=== PATIENT | female | born 1955 | race Caucasian/White ===

== ENCOUNTER 2024-04-03 13:28 | Outpatient (REF) | payer MEDICARE, SELFPAY ==
[2024-04-03 19:55] LABS: Abs Immature Grans 0.11 10^3/uL (0.0-0.06); Absolute Basophil Count 0.13 10^3/uL (0.0-0.2); Absolute Lymphocyte Count 2.25 10^3/uL (1.2-3.4); Basophils % 0.9 %; Eosinophils % 0.7 %; HCT 37.8 % (36.0-46.0); HGB 12.4 g/dL (11.2-15.7); Immature Grans % 0.8 %; Lymphocytes % 15.8 %; MCH 27.7 pg (27.0-33.0); MCHC 32.8 % (32.0-36.0); MCV 84 fL (80-95); MPV 8.3 fL (8.0-11.0); Monocytes % 8.4 %; Neutrophils % 73.4 %; RBC 4.48 10^6/uL (3.93-5.22); RDW 15.5 % (11.7-14.6); RDW-SD 47.6 fL; WBC 14.25 10^3/uL (4.4-10.8)
[2024-04-03 20:00] LABS: Absolute Neutrophil Count 10.46 10^3/uL (1.2-6.7)
[2024-04-03 20:16] LABS: ALT 20 U/L (14-59); AST 22 U/L (15-37); Albumin 2.2 g/dL (3.4-5.0); Alkaline Phosphatase 122 U/L (46-116); Anion Gap 5.5 mmol/L (3-11); BUN 19 mg/dL (7-18); Bilirubin, Total 0.2 mg/dL (0.2-1.0); CO2 25.5 mmol/L (21.0-32.0); CREATININE 0.5 mg/dL (0.55-1.02); Calcium 8.6 mg/dL (8.5-10.1); Chloride 105 mmol/L (98-107); Estimated GFR 103.38 (mL/min/1.73m2); Glucose 84 mg/dL (74-106); Potassium 3.9 mmol/L (3.5-5.1); Sodium 136 mmol/L (136-145); TSH (W/Ref FT4) 2.51 uIU/mL (0.36-3.74); Total Protein 6.3 g/dL (6.4-8.2)
[2024-04-03 20:46] LABS: Platelet Count 708 10^3/uL (130-400)
[2024-04-06 16:13] LABS: Tissue Transglutaminase Ab IgA <1.2 U/mL (<4.0); Tissue Transglutaminase Ab IgG 1.7 U/mL
== END 2024-04-03 13:29 | disposition home or self-care (01) ==
LOC: NCHCN 13:28
PROVIDERS: Visit Provider Nurse Practitioner Family
DX: K52.9 Noninfective gastroenteritis and colitis, unspecified (principal)
CPT/HCPCS: 80053; 83516; 84443; 85025

== ENCOUNTER 2024-04-04 10:44 | Outpatient (REF) | payer MEDICARE, SELFPAY ==
[2024-04-04 20:05] LABS: C Diff PCR Negative (Negative)
[2024-04-05 23:41] LABS: Campylobacter PCR Negative (Negative); Salmonella PCR Negative (Negative); Shiga Toxin PCR Negative (Negative); Shigella/Enteroinvasive Ecoli Negative (Negative)
[2024-04-09 21:54] LABS: Calprotectin 274 mcg/g
== END 2024-04-04 10:45 | disposition home or self-care (01) ==
LOC: NCHCN 10:44
PROVIDERS: Visit Provider Nurse Practitioner Family
DX: K52.9 Noninfective gastroenteritis and colitis, unspecified (principal)
CPT/HCPCS: 87493; 87505; 83993; 87177

== ENCOUNTER → 2024-04-23 11:15 | Outpatient (BNVA) | payer MEDICARE, SELFPAY | PROVIDERS: PCP Nurse Practitioner Family; Referring Provider Nurse Practitioner Family; Visit Provider Physical Therapy Assistant | DX: R19.7 Diarrhea, unspecified (principal); R63.4 Abnormal weight loss; R53.83 Other fatigue | CPT/HCPCS: 99203 ==

== ENCOUNTER 2024-04-26 08:21 | Day surgery (SDC) | payer MEDICARE, SELFPAY ==
--- NOTE | 2024-04-25 19:41 | W.PM.DSUDISC ---
Date of service: 04/26/24 Time of Service: 10:29 Discharge Plan Disposition Patient Disposition: Home Condition: Good Discharge Details Reason For Visit: screening colonoscopy Attending Provider: Charbel Chen Primary Care Provider: Niurka Norman Home Meds and New Rx's Prescriptions: Discontinued bisacodyl [Dulcolax (bisacodyl)] 5 mg tablet,delayed release (DR/EC) 5 mg PO ONCE Qty: 4 0RF Rx Instructions: Take per colonoscopy instructions provided by ordering providers office polyethylene glycol 3350 17 gram/dose powder 17 g PO ONCE Qty: 238 0RF Rx Instructions: Take per colonoscopy instructions provided by ordering providers office Discharge Instructions Additional Instructions: Bridget, during today's colonoscopy, I did find a mass growing in a portion of your large intestine called the ascending colon. Honestly, I have some concerns that this may be colon cancer. It is too big for me to remove with the colonoscope, but I did do several biopsies so that we can find out for sure what it is. I also took out 2 polyps, and noted that you have a little bit of diverticulosis. Diverticula are weak spots in the colon wall that typically accumulate as we get older. I have taken the liberty of scheduling a follow-up appointment in my office on May 07. I suspect I will have the biopsy results before that, and I will certainly call you as soon as I have that information. I am also ordering a CT scan to see if that can provide some more information. That test can be done here at the hospital and is basically an advanced type of x-ray. If you need anything at all in the meantime, please do not hesitate to ask. And as I mentioned, as soon as I have some more information I will be in touch. 1. If tolerated, consume a soft, low fiber diet for 1-2 days. 2[address] Do not drive, drink alcohol, operate machinery, make critical decisions, or do activities that require coordination or balance for 24 hours. 3. Because air was put into your colon during the procedure, expelling air from your rectum (passing gas or farting) is normal. 4. You may not have a bowel movement for 1-3 days because of the colonoscopy prep. This is normal. 5. Go directly to the emergency room if you notice any of the following: Develop chills (warm to touch), or if you have a thermometer and your temperature is above 101 Difficulty breathing or difficultly swallowing Persistent vomiting Severe abdominal pain, other than gas cramps Severe chest pain Black, tarry stools Any bleeding ? exceeding one tablespoon 6. Call your physician if the site where your intravenous was started becomes red, swollen, painful, and warm to touch. 7. Your physician has reviewed your pre-procedure medications. Please continue to take those medications as previously ordered. You will be given specific information/education regarding any changes to your medications before leaving. Activity:: Activity as Tolerated Diet:: As Tolerated Discharge Orders Discharge Orders: Discharge Order (Routine); Ordered 04/25/24 Ordered By: Charbel Chen DS: Diagnosis Discharge Diagnosis (1) Encounter for screening colonoscopy: Status: Acute Asessment and Plan: Outpatient office follow-up
--- NOTE | 2024-04-25 19:43 | W.COLOREPORT ---
Date of service: 04/26/24 Time of Service: 10:32 Colonoscopy Report Date of procedure: 04/26/24 Pre-op diagnosis general: diarrhea and screening colonoscopy Post-op diagnosis procedure note: other (Ascending colon tumor, colon polyps, diverticulosis) Procedure: colonoscopy with biopsies and with polypectomy Surgeon: Charbel Chen Anesthesia Type: General:No Airway Estimated blood loss (mL): 10 Pathology: other (Biopsies of ascending colon mass, colon polyps that 25 cm) Complications: None Disposition: same day Indications: Bridget is a 68 year olf woman who needs a screening colonoscopy. Medical history is relevant for chronic diarrhea. 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 Perineum and skin were normal, as was the anal verge.? There are some perianal skin tags consistent with old hemorrhoids.? Next, I performed a digital rectal exam.? I did not appreciate any abnormal findings.? Next, I advanced a colonoscope into the rectal vault.? I performed retroflexion.? This appeared normal.? Using insufflation, I then advanced the colonoscope beyond the rectal folds and into the sigmoid colon before advancing towards the cecum.? There was sigmoid diverticulosis.? Around 70 cm from the anal verge was a fungating friable mass. It appears to be proximal to the hepatic flexure, and I am fairly confident this is in the ascending colon, but surface anatomy is little bit difficult to decipher. I cannot safely navigate past the mass. I did perform several cold forcep biopsies. Clinical features are concerning for cancer. I then began withdrawing the colonoscope using repeated irrigation as necessary for full evaluation of the colonic mucosa. Around 25 cm from the anus is a large pedunculated polyp. I would estimate it to be greater than 1.5 cm in its largest dimension. This was removed with a energize snare polypectomy. A smaller sessile polyp is found just a few centimeters away. This was also removed with a snare polypectomy. Once the scope was withdrawn to the level of the rectum, great care was taken to examine portions of the rectal folds.? Finally, the scope was withdrawn and the patient was brought to the same-day surgery recovery unit as the anesthetic wore off. ?The findings and instructions were shared with the patient prior to discharge. [place] Bowel Prep [place] Bowel Prep Right Colon: 2 Left Colon: 2 Transverse Colon: 2 Total Score: 6
[2024-04-26 08:41] VITALS: BP 99/79; PULSE 97; RESP 20; TEMP 36.4; O2SAT 99
[2024-04-26] MEDS: Lactated Ringers 1,000 ML 80 ML IV (08:44)
--- NOTE | 2024-04-26 09:40 | W.ANESPRE ---
General Info Date of Service Date Performed: 04/26/24 Height: 5 ft 2 in Weight: 44.7 kg Body Mass Index (BMI): 18.0 Surgical Procedure: Operation Date: 04/26/24 09:35 Proposed Procedure Side Surgeon p Phani Chen MD Meds Allergies and Home Medications Allergies Allergy/AdvReac Type Severity Reaction Status Date / Time No Known Allergies Allergy Verified 04/26/24 08:40 Current Visit Medications: Current Medications Generic Name Dose Route Start Last Admin Trade Name Freq PRN Reason Stop Dose Admin Hyoscyamine Sulfate 0.125 mg 04/25/24 19:44 Hyoscyamine 0.125 Mg Sl/Oral/Chew SL 05/25/24 19:43 DIRECTED PRN Ringer's Solution 1,000 mls @ 80 mls/hr 04/26/24 06:00 04/26/24 08:44 IV 05/25/24 23:59 80 mls/hr INFUSION BRANDON Administration IV Miscellaneous Supplies 1 each 04/26/24 06:00 Iv Access IV 05/25/24 23:59 DIRECTED BRANDON Ondansetron HCl 4 mg 04/25/24 19:44 Ondansetron 4 Mg/2 Ml Vial IVP 05/25/24 19:43 Q4H PRN PRN Nausea / Vomiting Sodium Chloride 0 ml 04/26/24 06:00 Normal Saline Flush 10 Ml Syr IV 05/25/24 23:59 PRN PRN Sodium Chloride 0 ml 04/26/24 06:00 Normal Saline 10 Ml Vial IJ 05/25/24 23:59 DIRECTED PRN Sterile Water 0 ml 04/26/24 06:00 Water,Injection,Sterile 10 Ml Vial IJ 05/25/24 23:59 DIRECTED PRN PFSH Active Problems Active Problems: Problem Status Onset Code Encounter for screening colonoscopy Z12.11 Medical History Medical History Chronic diarrhea Abnormal weight loss Fatigue Surgical History Surgical History H/O hernia repair Tobacco Smoking/Tobacco Use Status: Former Tobacco Use Alcohol Alcohol Intake: former Substance Use Substance use type: does not use Vital Signs and Lab Results Vital Signs Most Recent Vital Signs in EMR: Most Recent Vital Signs Temp Pulse Resp BP Pulse Ox 36.4 C L 97 H 20 99/79 L 99 04/26/24 08:41 04/26/24 08:41 04/26/24 08:41 04/26/24 08:41 04/26/24 08:41 Lab Results Blood Type / Crossmatch: No Data to Display Complete Blood Count: White Blood Count 14.25 10^3/uL (4.4-10.8) H 04/03/24 12:00 Red Blood Count 4.48 10^6/uL (3.93-5.22) 04/03/24 12:00 Hemoglobin 12.4 g/dL (11.2-15.7) 04/03/24 12:00 Hematocrit 37.8 % (36.0-46.0) 04/03/24 12:00 Platelet Count 708 10^3/uL (130-400) H 04/03/24 12:00 Complete Metabolic Panel: Sodium 136 mmol/L (136-145) 04/03/24 12:00 Potassium 3.9 mmol/L (3.5-5.1) 04/03/24 12:00 Chloride 105 mmol/L (98-107) 04/03/24 12:00 Carbon Dioxide 25.5 mmol/L (21.0-32.0) 04/03/24 12:00 BUN 19 mg/dL (7-18) H 04/03/24 12:00 Creatinine 0.5 mg/dL (0.55-1.02) L 04/03/24 12:00 Est GFR (CKD-EPI 2020) 103.38 (mL/min/1.73m2) 04/03/24 12:00 Calcium 8.6 mg/dL (8.5-10.1) 04/03/24 12:00 Albumin 2.2 g/dL (3.4-5.0) L 04/03/24 12:00 Glucose 84 mg/dL (74-106) 04/03/24 12:00 Liver Function Panel: Alanine Aminotransferase (ALT/SGPT) 20 U/L (14-59) 04/03/24 12:00 Aspartate Amino Transf (AST/SGOT) 22 U/L (15-37) 04/03/24 12:00 Coagulation Panel: No Data to Display Cardiac Panel: No Data to Display Arterial Blood Gas: No Data to Display Venous Blood Gas: No Data to Display Pancreas Panel: No Data to Display Thyroid Panel: Thyroid Stimulating Hormone (TSH) 2.51 uIU/mL (0.36-3.74) 04/03/24 12:00 Infectious Disease: No Data to Display Blood Cultures: No Data to Display Toxicology Panel: No Data to Display Anesthesia Assessment and Plan Anesthesia History Personal History: No History of Anesthesia Complications Family History: No Family History of Anesthesia Complications Exercise Tolerance Exercise Tolerance: Metabolic Equivalents>4 Pertinent Negatives Pertinent Negatives: No Symptoms of GERD, No Major Cardiovascular Symptoms or Complaints and No Major Pulmonary Symptoms or Complaints Cardiac & Pulmonary Exam Cardiac Exam: Normal S1/S2 Heart Sounds Pulmonary Exam: Clear Bilateral Breath Sounds Implantable Cardiac Device Does patient have a Pacemaker or an ICD?: No Airway Exam Known Difficult Airway: No Mallampati Class: 2 Mouth Opening: Normal (> 3cm) Thyromental Distance: Greater than 3 cm Neck Range of Motion: Full ROM Neck Circumference: Normal Teeth Condition: Removable Dentures/Plates Upper and Removable Dentures/Plates Lower (partial) ASA Classification ASA Score: ASA 2 Emergency Case?: No NPO Status NPO Status: NPO Clears >2 hours, Solids >8 hours Anesthesia Plan Resuscitation Status: Full Code Anesthesia Technique: General Anesthesia Airway Planned: Natural Airway Monitors Used: Standard Monitors
[2024-04-26 09:48] VITALS: BMI 18.0
--- NOTE | 2024-04-26 10:15 | BOWEL_PTH ---
PATIENT: Bridget Graves LOC: [facility] U#:[id number] AGE/SX: 68/F ROOM: RE04/26/[address]: Charbel Chen MD : 1955 BED: DIS: 04/26/2024 SPEC #: [id number] RECD: 04/26/24 13:09 STATUS: CAROLYN RETaylor #: [id number] ROLANDO: 04/26/24 10:[address]: Charbel Chen DEPT: Surgical Specimen RECD BY: Susan Longo ENTERED: 04/26/24 13:10 SP TYPE: Bowel OTHR DR: Rylan Norman Tissues: 1 - BIOPSY BOWEL 2 - BIOPSY BOWEL Procedures: GROSS AND MICRO LEVEL 4 Comments: [id number]
[2024-04-26 10:36] VITALS: BP 78/60; PULSE 75; RESP 16; TEMP 36.6; O2SAT 98
[2024-04-26 10:49] VITALS: BP 107/79
[2024-04-26 11:06] VITALS: BP 100/75; PULSE 77; RESP 18; TEMP 36.9; O2SAT 98
[2024-04-26 11:16] LABS: HCT 35.4 % (36.0-46.0); HGB 11.2 g/dL (11.2-15.7); MCH 27.4 pg (27.0-33.0); MCHC 31.6 % (32.0-36.0); MCV 87 fL (80-95); MPV 7.8 fL (8.0-11.0); Platelet Count 612 10^3/uL (130-400); RBC 4.09 10^6/uL (3.93-5.22); RDW 16.5 % (11.7-14.6); RDW-SD 52.1 fL
--- NOTE | 2024-04-26 11:25 | W.ANESPOSTOP ---
Postoperative Evaluation Date, Time and Location Date Performed: 04/26/24 Time Performed: 11:22 Patient Location: Day Surgery Unit Vital Signs Most Recent Imported Vital Signs: Most Recent Vital Signs Temp Pulse Resp BP Pulse Ox 36.9 C 77 18 100/75 98 04/26/24 11:06 04/26/24 11:06 04/26/24 11:06 04/26/24 11:06 04/26/24 11:06 Pain Score Most Recent Pain Score: Most Recent Pain Score Pain Level 0 04/26/24 11:06 Assessment Mental Status: Awake (Alert & Oriented to Patient Baseline) Airway and Respiratory Function: Patent airway with normal (patient baseline) respiratory exam Cardiovascular Function: Hemodynamically Stable Hydration Status: Adequately Hydrated Nausea & Vomiting: No Nausea or Vomiting Pain: Pt. Denies Any Pain Peripheral Nerve Block: Patient did not receive a nerve block
[2024-04-26 12:10] LABS: Anion Gap 6.7 mmol/L (3-11); BUN 17 mg/dL (7-18); CO2 27.3 mmol/L (21.0-32.0); CREATININE 0.5 mg/dL (0.55-1.02); Calcium 8.4 mg/dL (8.5-10.1); Chloride 103 mmol/L (98-107); Estimated GFR 103.38 (mL/min/1.73m2); Glucose 80 mg/dL (74-106); Potassium 4.1 mmol/L (3.5-5.1); Sodium 137 mmol/L (136-145)
[2024-04-26 12:16] LABS: ALT 25 U/L (14-59); AST 18 U/L (15-37); Alkaline Phosphatase 98 U/L (46-116); Bilirubin, Direct 0.1 mg/dL (0.0-0.2); Bilirubin, Total 0.2 mg/dL (0.2-1.0); Total Protein 5.9 g/dL (6.4-8.2)
== END 2024-04-26 11:38 | disposition home or self-care (01) ==
LOC: SUR 08:22
PROVIDERS: PCP Nurse Practitioner Family; Visit Provider Surgery
PROC: 0DJD8ZZ Inspection of Lower Intestinal Tract, Via Natural or Artificial Opening Endoscopic (ICD-10-PCS; CPT 45378; principal; 2024-04-26 09:30)
DX: K57.30 Diverticulosis of large intestine without perforation or abscess without bleeding; D37.4 Neoplasm of uncertain behavior of colon; R19.7 Diarrhea, unspecified; K63.89 Other specified diseases of intestine; C18.2 Malignant neoplasm of ascending colon
CPT/HCPCS: 45385; 36415; 80048; 80076; 85027; 88305; 82040; 82378; J2001; J2371; J2704

== ENCOUNTER → 2024-05-20 12:11 | Outpatient (CLI) | payer MEDICARE, SELFPAY ==
--- NOTE | 2024-05-20 | DI.MAMMO_ITS ---
Exam(s) MAMMO SCREENING EXAM: MAMMO SCREENING CLINICAL HISTORY: Screening, Z12.39. TECHNIQUE: Bilateral full field digital CC and MLO mammographic images were obtained with 3D tomosyn thesis and utilizing computer aided detection (CAD). COMPARISON: 2006 FINDINGS: There has been significant interval decrease in breast size and significant increase in breast densit y compared with the previous exam. Masses: None seen. Architectural Distortion: None seen. Microcalcifications: No suspicious pleomorphic-type are seen. Skin Thickening/Nipple Retraction: None. IMPRESSION: 1. Extremely dense breast tissue. 2. Unless there is more urgent need, annual screening mammography is recommended, as per [place] [employer] guidelines. BI-RADS Category 1-negative Breast Density - Category D - extremely dense Breast Density Category D: The mammogram demonstrates the patient's breast tissue is dense. Dense heriberto ast tissue is very common and is not abnormal but dense breast tissue can make it harder to find canc er on a mammogram. Also, dense breast tissue may increase their breast cancer risk. This information about the result of the mammogram report was provided to the patient to raise their awareness. Use th is report when you speak with the patient about their risks for breast cancer, which includes their f amily history. At that time, you may recommend for more screening tests (Ultrasound or MRI) as they m ight be useful based on their risk. A negative radiographic report should not delay biopsy if a dominant or clinically suspicious mass is present. Up to ten percent of cancers are not identified on mammography. A negative report may reinforce clinical impression. Adenosis and dense breasts may obscure an underlying neoplasm. False positive reports average 6 to 10%.
== END ==
PROVIDERS: PCP Nurse Practitioner Family; Visit Provider Nurse Practitioner Family
DX: Z12.31 Encounter for screening mammogram for malignant neoplasm of breast (principal); R92.343 Mammographic extreme density, bilateral breasts
CPT/HCPCS: 77063; 77067

== ENCOUNTER → 2024-05-24 00:24 | Outpatient (CLI) | payer MEDICARE, SELFPAY ==
--- OUTSIDE RECORDS SUMMARY | 2024-05-24 00:56 | XMS_ITS | Encounter Summary ---
Author Organization [facility] Address [address] [place] [address] Care Team Providers Care Field Sales Consultant Name Role Phone Unavailable Primary Care Provider Unavailabl e Encounter Details Date Type Department Care Team (Late st Contact Info) Description 09/19/2005 Results Only [facility] [address] [place] [address] Thomas Park PA [address] [place] [address] [phone] Social History Tobacco Use Types Packs/Day Years Used Date Smoking Tobacco: Never Assessed Sex and Gender Information Value Date Recorded Sex Assigned at Not on file Gender Identity Not on file Sexual Orientation Not on file documented as of this encounter Plan of Treatment Not on file documented as of this encounter Procedures Procedure Name Priority Date/Time Associated Diagnosis Comments CYTOPATHOLOGY Routine 09/19/2005 0:00 EST documented in this encounter Results * CYTOPATHOLOGY (09/19/2005 0:00 EST) Pathology Report: CYTOPATHOLOGY REPORT Reports generated via electronic interface contain original data; however they are lacking the format of the original report. Caution should be taken when reading/interpreti ng unformatted reports. Name: ? BRIDGET MANZANARES ? Accession #: ? [id number] : ? 1955 (Age: 50) ??F ?Collect Date: ? 09/19/2005 Location: ? [facility] ? Receive Date: ? 09/21/2005 Provider: ?THOMAS LAROSE Copy to: ? Specimen/Source: ?ThinPrep Pap Test, Vagina, processed on [employer] ThinPrep Imaging System, with manual evaluation Last Menstrual Period: ? Previous Gynecologic Pathology: ? Yes: before hysterectomy Treatment History: ? Hysterectomy: about 10 years ago Other: ? HPVA - HPV testing requested if ASC-US on the current ThinPrep Pap test. ? SPECIMEN ADEQUACY ? Satisfactory for Evaluation - assessment of transformation zone component not applicable ( e.g. atrophy, vaginal sample, hysterectomy) GENERAL CATEGORIZATION ? Negative for Intraepithelial Lesion or Malignancy INTERPRETATION ? Shift in kristine present suggestive of bacterial vaginosis. ? Document reviewed and electronically signed by: ? MERCEDES Marcos(ASCP) ? Report Date: ??09/27/2005 08:12 End of Report [facility] 09/19/2005 09/21/2005 Thomas LAROSE PATHOLOGY ORDERABLES [facility] [address] [place] [address] documented in this encounter Visit Diagnoses Not on filedocumented in this encounter
--- OUTSIDE RECORDS SUMMARY | 2024-05-24 00:56 | XMS_ITS | Encounter Summary ---
Author Organization [facility] Address [address] [place] [address] Care Team Providers Care Public Relations Representative Name Role Phone Vivian Park Primary Care Provider [phone] Encounter Details Date Type Department Care Team (Late st Contact Info) Description 04/05/2024 Lab Requisition [facility] - [address] [address] Outr Resulting Lab, Provider Social History Tobacco Use Types Packs/Day Years Used Date Smoking Tobacco: Never Assessed Sex and Gender Information Value Date Recorded Sex Assigned at Not on file Gender Identity Not on file Sexual Orientation Not on file documented as of this encounter Plan of Treatment Not on file documented as of this encounter Procedures Procedure Name Priority Date/Time Associated Diagnosis Comments FECAL BACTERIAL PATHOGENS BY PCR Routine 04/04/2024 7:00 EDT OVA/PARASITE EXAM Routine 04/04/2024 7:00 EDT documented in this encounter Results * FECAL BACTERIAL PATHOGENS BY PCR (04/04/2024 7:00 EDT) Salmonella PCR Negative Negative 04/05/2024 23:36 EDT [facility] Shigella/Enteroin vasive E. coli Negative Negative 04/05/2024 23:36 EDT [facility] CAMPYLOBACTER PCR Negative Negative 04/05/2024 23:36 EDT [facility] Shiga Toxin PCR Negative Negative 23:36 EDT [facility] Feces SPECIMEN FROM RECTUM / Unknown 04/04/2024 7:00 EDT 04/05/2024 18:49 EDT Provider Outr Resulting Lab MICROBIOLOGY - GENERAL ORDERABLES Performing Organization Address City/[facility]/ZIP Co de Phone Number [facility] [address], [place] [id number] * OVA/PARASITE EXAM (04/04/2024 7:00 EDT) Parasite No ova and parasites seen. 04/08/2024 11:18 EDT [facility] Feces SPECIMEN FROM RECTUM / Unknown 04/04/2024 7:00 EDT 04/05/2024 18:49 EDT Narrative [facility] - 04/08/2024 11:18 EDT (If Cryptosporidium, Cyclospora, or Microsporidium are suspected, specific tests must be requested.) Single negative specimen does not rule out the possibility of a parasitic infection. Provider Outr Resulting Lab MICROBIOLOGY - GENERAL ORDERABLES Performing Organization Address [facility] Co de Phone Number [facility] [address] [place] [phone] documented in this encounter Visit Diagnoses Not on filedocumented in this encounter Care Teams Public Relations Representative Relationship Specialty Start Date End Date Vivian Park PA [address] [place] [id number] PCP - General 09/18/15 documented as of this encounter
--- OUTSIDE RECORDS SUMMARY | 2024-05-24 00:56 | XMS_ITS | Encounter Summary ---
Author Organization [facility] Address [address] [place] [address] Care Team Providers Care Retail Service Technician Name Role Phone Unavailable Primary Care Provider Unavailabl e Encounter Details Date Type Department Care Team (Late st Contact Info) Description 10/03/2005 Results Only [facility] [address] [place] [address] Thomas Park PA [address] [place] [address] [phone] Social History Tobacco Use Types Packs/Day Years Used Date Smoking Tobacco: Never Assessed Sex and Gender Information Value Date Recorded Sex Assigned at Not on file Gender Identity Not on file Sexual Orientation Not on file documented as of this encounter Plan of Treatment Not on file documented as of this encounter Procedures Procedure Name Priority Date/Time Associated Diagnosis Comments CYTOPATHOLOGY Routine 10/03/2005 0:00 EST documented in this encounter Results * CYTOPATHOLOGY (10/03/2005 0:00 EST) Pathology Report: CYTOPATHOLOGY REPORT Reports generated via electronic interface contain original data; however they are lacking the format of the original report. Caution should be taken when reading/interpreti ng unformatted reports. Name: ? BRIDGET MANZANARES ? Accession #: ? [id number] : ? 1955 (Age: 50) ??F ?Collect Date: ? 10/03/2005 Location: ? [facility] ? Receive Date: ? 10/04/2005 Provider: ? THOMAS LAROSE Copy to: ? CYTOLOGIC DIAGNOSIS: ? Urine, voided, cytologic evaluation: - No malignant cells identified. Document reviewed and electronically signed by: ? YECENIA RAMON MD Report Date: ??10/04/2005 15:20 By the signature above, the attending physician certifies that he/she has personally conducted a gross and/or microscopic examination of the described specimens and rendered or confirmed the above diagnosis. Specimen Type: ? Urine, Voided Clinical History: ? Microscopic hematuria ? Gross Description: ? 100cc' s of clear yellow fluid were received and processed by selective cellular enhancement technique. ? End of Report [facility] 10/03/2005 10/04/2005 8:2 2 EST Thomas LAROSE PATHOLOGY ORDERABLES Performing Organization Address City/State/[facility] Co de Phone Number [facility] [address] [place] [address] documented in this encounter Visit Diagnoses Not on filedocumented in this encounter
--- OUTSIDE RECORDS SUMMARY | 2024-05-24 00:56 | XMS_ITS | Referral Summary ---
Author Organization [facility] Address [address] [place] [address] Care Team Providers Care Terrazzo Laborer Name Role Phone Vivian Park Primary Care Provider [phone] Encounters Date Type Department Care Team Description 04/26/2024 Lab Requisition [facility] Pathology & Laboratory [address] [address] Charbel Chen MD Encounter for screening for malignant neoplasm of colon 04/26/2024 Lab Requisition [facility] Pathology & Laboratory [address] [address] Outr Resulting Lab, Provider 04/05/2024 Lab Requisition [facility] Pathology & Laboratory [address] [address] Outr Resulting Lab, Provider from Last 3 Months Social History Tobacco Use Types Packs/Day Years Used Date Smoking Tobacco: Never Assessed Sex and Gender Information Value Date Recorded Sex Assigned at Not on file Gender Identity Not on file Sexual Orientation Not on file Plan of Treatment Not on file Procedures Procedure Name Priority Date/Time Associated Diagnosis Comments CEA Routine 04/26/2024 11:10 EDT SURGICAL PATHOLOGY Today 04/26/2024 10 :15 EDT Encounter for screening for malignant neoplasm of colon FECAL BACTERIAL PATHOGENS BY PCR Routine 04/04/2024 7:00 EDT OVA/PARASITE EXAM Routine 04/04/2024 7:00 EDT from Last 3 Months Results * CEA (04/26/2024 11:10 EDT) CEA 5.0 See Note ng/mL 04/26/2024 20:36 EDT [facility] Comment: % Distribution of CEA (ng/mL): ??0.0 - 2.5 in 98.2% of Nonsmokers and 87.3% of Smokers ??2.6 - 5 in 1.8% of Nonsmokers and 8% of Smokers ??5.1 - 10.1 in 4.7% of Smokers NOTE: Serum CEA concentration should not be interpeted as absolute evidence for the presence or absence of malignant disease. ?? Assayed on Siemens ADVIA Centaur XPT using chemiluminescent technology. ??Values obtained by different assay methods cannot be used interchangeably. Blood VENOUS BLOOD / Unknown 04/26/2024 11:10 EDT 04/26/2024 17:31 EDT Provider Outr Resulting Lab CHEMISTRY & BLOOD GAS ORDERABLES [facility] [address] [place] [address] * SURGICAL PATHOLOGY (04/26/2024 10:15 EDT) Note to Patient The following pathology results have been interpreted by your pathologist and may be available to you before your health provider has had the opportunity to review them. Please allow time for your provider to receive these results and explore management options, if applicable. 05/02/2024 16:36 T [facility] Final Diagnosis A. 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 - Deeper levels examined. - See comment. B. COLON, 25 CM, POLYP, BIOPSY: - Tubulovillous adenoma. - Stalk margin negative for lesion. - Sessile serrated adenoma. 05/02/2024 16:36 T [facility] Diagnosis Comment Due to the superficial nature of the biopsy, underlying invasive carcinoma into the submucosa is not excluded. Clinical correlation is recommended. Sales Vendor slides of this case were reviewed at the gastrointestinal/[facility] intradepartmental consultation conference. (AMS, ABS) 05/02/2024 16:36 EDT [facility] Attestation There was significant resident/fellow involvement in the diagnostic evaluation of this case. By the signature below, the attending physician certifies that they have personally conducted a gross and/or microscopic examination of the described specimens and rendered or confirmed the above diagnosis. 05/02/2024 16:36 [facility] at 1636 Clinical History Screening 05/02/2024 16:36 T [facility] Gross Description A. Received in formalin labelled with proper patient identification (initials T, L) and 1. Ascending colon mass bx are 3 mahmood tissues (0.3 x 0.2 x 0.1 cm to 0.2 x 0.1 x 0.1 cm). Entirely submitted in A1. B. Received in formalin labelled with proper patient identification (initials T, L) and 2. Polyp @ 25 cm x2 is a brown, granular, lobular pedunculated polypoid tissue (1.5 x 1.1 x 1.1 cm). The stalk measures 0.7 x 0.6 cm. Received in the same specimen container is a mahmood-white tissue (0.5 x 0.3 x 0.1 cm). The polypoid tissue is serially sectioned and entirely submitted in B1-B3 and the remaining tissue is submitted intact in B4. Bibi Beth 04/27/2024 9:20 05/02/2024 16:36 EDT [facility] Resident/Fell ow: James Ramesh DO 05/02/2024 16:36 T [facility] Performing Lab [facility] 05/02/2024 16:36 T [facility] Scanned Images 05/02/2024 16:36 EDT [facility] Tissue COLON STRUCTURE / Unknown 04/26/2024 10:15 EDT 04/26/2024 17:55 EDT Tissue specimen (specimen) COLON STRUCTURE / Unknown 04/26/2024 10:15 EDT 04/26/2024 17:55 EDT Charbel Chen MD PATHOLOGY ORDERABLES [facility] [address] [place] [id number] * FECAL BACTERIAL PATHOGENS BY PCR (04/04/2024 7:00 EDT) Salmonella PCR Negative Negative 04/05/2024 23:36 EDT [facility] Shigella/Enteroin vasive E. coli Negative Negative 04/05/2024 23:36 EDT [facility] HN LAB CAMPYLOBACTER PCR Negative Negative 04/05/2024 23:36 EDT [facility] Shiga Toxin PCR Negative Negative 23:36 EDT [facility] Feces SPECIMEN FROM RECTUM / Unknown 04/04/2024 7:00 EDT 04/05/2024 18:49 EDT Provider Outr Resulting Lab MICROBIOLOGY - GENERAL ORDERABLES Performing Organization Address [facility]/ZIP Co de Phone Number [facility] [address] [place] [address] * OVA/PARASITE EXAM (04/04/2024 7:00 EDT) Parasite No ova and parasites seen. 04/08/2024 11:18 EDT [facility] Feces SPECIMEN FROM RECTUM / Unknown 04/04/2024 7:00 EDT 04/05/2024 18:49 EDT Narrative [facility] - 04/08/2024 11:18 EDT (If Cryptosporidium, Cyclospora, or Microsporidium are suspected, specific tests must be requested.) Single negative specimen does not rule out the possibility of a parasitic infection. Provider Outr Resulting Lab MICROBIOLOGY - GENERAL ORDERABLES [facility] [address], [place] [phone] from Last 3 Months Care Teams Terrazzo Laborer Relationship Specialty Start Date End Date Vivian Park PA [address] [place], [place] [phone] PCP - General 09/18/15
--- OUTSIDE RECORDS SUMMARY | 2024-05-24 00:56 | XMS_ITS | Encounter Summary ---
Author Organization [facility] Address [address] [place] [address] Care Team Providers Care Software Integration Developer Name Role Phone Vivian Park Primary Care Provider Encounter Details Date Type Department Care Team (Late st Contact Info) Description 04/26/2024 Lab Requisition [facility] Pathology & Laboratory Medicine - [address] [address] Outr Resulting Lab, Provider Social History Tobacco [...] Diagnosis Comments CEA Routine 04/26/2024 11:10 EDT documented in this encounter Results * CEA (04/26/2024 11:10 EDT) CEA 5.0 See Note ng/mL 04/26/2024 20:36 EDT [facility] Comment: % Distribution of CEA [...] Resulting Lab CHEMISTRY & BLOOD GAS ORDERABLES [facility] [address] [place], [place] [phone] documented in this encounter Visit Diagnoses Not on filedocumented in this encounter Care Teams Software Integration Developer Relationship Specialty Start Date End Date Vivian Park PA [address] [place] [id number] PCP - General 09/18/15 documented as of this encounter
--- OUTSIDE RECORDS SUMMARY | 2024-05-24 00:56 | XMS_ITS | Data Portability ---
Author Organization [place] [facility] [place] [address] Assessment Encounter Date Assessment Date Assessment LastModified by Organization Details LastModified Time 04/03/2024 04/03/2024 The total time devoted to today's encounter, including both the ckff-ql-rbci time with the patient and/or family/caregi servando and jqc-punf-fc-f ricardo time I personally spent is 45 minutes. Not available 04/03/2024 12:21:16 Plan of Treatment Reminders Order Date Submit Date Provider Last Modified By Organization Details Last Modified Time Details Appointments None recorded. Lab C diff toxin A+B, qualitative , stool - only if not ordered through GI pathogens panel 2023 024 [email or web address] [facility] (Registration ), [address] [place] [address] [place], [address], 4 10:07:49 calprotecti n, stool 2023 024 [email or web address] [facility] (Registration ), [address] [place] [address] [place], [address], 4 08:52:58 O&P (ova & parasites), stool - only if not ordered through GI pathogens panel 2023 024 [email or web address] [facility] (Registration ), [address] [place] [address] [place], [address], 4 07:30:53 gastrointes tinal pathogens panel, culture, stool [address] Laboratory (Registration ), [address] [place] [address] [place], [address], 4 07:30:54 TSH, serum, reflex free T4 2023 024 [facility] (Registration ), [address] [place] [address] [place], [address], 4 10:12:10 CMP, serum or plasma 2023 024 [facility] (Registration ), [address] [place] [address] [place], [address], 4 20:17:45 CBC w/ diff 2023 [facility] (Registration ), [address] [place] [address] [place], [address], 4 10:11:58 tissue transglutam inase, iga+igg Ab, serum [address] Laboratory (Registration ), [address] [place] [address] [place], [address], 4 07:13:39 Referral general surgeon referral - chronic diarrhea with associated weight loss and fatigue x one year, stool studies pending 2023 024 [facility] General Surgery, [address] [place] [address] [place], [address], 4 07:32:48 Procedures None recorded. Surgeries None recorded. Imaging CT, abdomen + pelvis, w/o contrast - Chronic diarrhea, weight loss, fatigue 2023 024 [email or web address] [facility], [address], [place], [address], 4 08:49:08 MAMMO, screening, bilateral 2023 024 [email or web address] [id number] [facility], [address], [place], [address], 08:06:11 Medication Orders None recorded. Patient TargetsNo targets recorded. Patient Instructions Encounter Date Encounter Id Patient Instructions Last Modified By Organization Details Last Modified Time 04/03/2024 [id number] learning about the low fodmap diet for irritable bowel syndrome (IBS) Not available 04/03/2024 12:21:03 I will let you know the results of your lab work and testing as they become available. Please review Low FODMAP diet. I referred you for colonoscopy at [facility], you should be hearing from them to schedule an appointment If you feel worse please let me know Not available 04/03/2024 11:47:07 04/04/2024 [id number] specimen collection & handling* Not available 04/04/2024 10:52:19 05/06/2024 [id number] When you are at [facility] tomorrow, please schedule your mammogram Let me know if you would like a second opinion. Dr. Chen should have a plan for your and your next steps. Positive attitude is definitely helpful. One day at a time. You can always see Amaris Lopez our therapist here at the clinic if you would like to process what is going on. Let me know what you need Not available 05/06/2024 11:15:26 Reason for Referral General Surgeon Referral for Chronic diarrhea chronic diarrhea with associated weight loss and fatigue x one year, stool studies pending Referring Physician: Niurka Norman, Family Medicine, Encounter Date: 04/03/2024 Results Created Date Observation Date Name Description Value Unit Range Abnormal Flag LastModifiedBy Organization Detail LastModifiedTime 04/03/20 24 04/03/2024 COMPR EHENS THEODORA METAB OLIC PANEL calcium 8.6 mg/dL 8.5-10 .1 normal Not Available [address] [place], [address] 04/03/2024 20:17:45 04/03/20 24 04/03/2024 COMPR EHENS THEODORA METAB OLIC PANEL glucose 84 mg/dL 74-106 normal Not Available [address] [place], [address] 04/03/2024 20:17:45 04/03/20 24 04/03/2024 COMPR EHENS THEODORA METAB OLIC PANEL BUN 19 mg/dL 7-18 high Not Available [address] [place], [address] 04/03/2024 20:17:45 04/03/20 24 04/03/2024 COMPR EHENS THEODORA METAB OLIC PANEL creatinine 0.5 mg/dL 0.55-1 .02 low Not Available [address] [place], [address] 04/03/2024 20:17:45 04/03/20 24 04/03/2024 COMPR EHENS THEODORA METAB OLIC PANEL estimated GFR 103.38 mL/min /1.73m 2 Not Available [address] [place], [address] 04/03/2024 20:17:45 04/03/20 24 04/03/2024 COMPR EHENS THEODORA METAB OLIC PANEL total protein 6.3 g/dL 6.4-8. 2 low Not Available [address] [place], [address] 04/03/2024 20:17:45 04/03/20 24 04/03/2024 COMPR EHENS THEODORA METAB OLIC PANEL albumin 2.2 g/dL 3.4-5. 0 low Not Available [address] [place], [address] 04/03/2024 20:17:45 04/03/20 24 04/03/2024 COMPR EHENS THEODORA METAB OLIC PANEL bilirubin, total 0.2 mg/dL 0.2-1. 0 normal Not Available [address] [place], [address] 04/03/2024 20:17:45 04/03/20 24 04/03/2024 COMPR EHENS THEODORA METAB OLIC PANEL alk phos 122 U/L 46-116 high Not Available [address] [place], [address] 04/03/2024 20:17:45 04/03/20 24 04/03/2024 COMPR EHENS THEODORA METAB OLIC PANEL sodium 136 mmol/ L 136-14 5 normal Not Available [address] [place], [address] 04/03/2024 20:17:45 04/03/20 24 04/03/2024 COMPR EHENS THEODORA METAB OLIC PANEL potassium 3.9 mmol/ L 3.5-5. 1 normal Not Available [address] [place], [address] 04/03/2024 20:17:45 04/03/20 24 04/03/2024 COMPR EHENS THEODORA METAB OLIC PANEL chloride 105 mmol/ L 98-107 normal Not Available [address] [place], [address] 04/03/2024 20:17:45 04/03/20 24 04/03/2024 COMPR EHENS THEODORA METAB OLIC PANEL CO2 25.5 mmol/ L 21.0-3 2.0 normal Not Available [address] [place], [address] 04/03/2024 20:17:45 04/03/20 24 04/03/2024 COMPR EHENS THEODORA METAB OLIC PANEL anion gap 5.5 mmol/ L 3-11 normal Not Available [address] [place], [address] 04/03/2024 20:17:45 04/03/20 24 04/03/2024 COMPR EHENS THEODORA METAB OLIC PANEL AST 22 U/L 15-37 normal Not Available [address] [place], [address] 04/03/2024 20:17:45 04/03/20 24 04/03/2024 COMPR EHENS THEODORA METAB OLIC PANEL ALT 20 U/L 14-59 normal Not Available [address] [place], [address] 04/03/2024 20:17:45 04/03/20 24 04/03/2024 TSH (W/RE F FT4) TSH (w/ref FT4) 2.51 uIU/m L 0.36-3 .74 normal Not Available [facility] (Registration ) [address] [place] [address] [place], [address], 04/03/2024 20:17:46 04/03/20 24 04/03/2024 COMPL ETE BLOOD COUNT W/DIF F WBC 14.25 10_3/ uL 4.4-10 .8 high Not Available [facility] (Registration ) [address] [place] [address] [place], [address], 04/03/2024 20:50:58 04/03/20 24 04/03/2024 COMPL ETE BLOOD COUNT W/DIF F RBC 4.48 10_6/ uL 3.93-5 .22 normal Not Available [facility] (Registration ) [address] [place] [address] [place], [address], 04/03/2024 20:50:58 04/03/20 24 04/03/2024 COMPL ETE BLOOD COUNT W/DIF F HGB 12.4 g/dL 11.2-1 5.7 normal Not Available [facility] (Registration ) [address] [place] [address] [place], [address], 04/03/2024 20:50:58 04/03/20 24 04/03/2024 COMPL ETE BLOOD COUNT W/DIF F HCT 37.8 % 36.0-4 6.0 normal Not Available [facility] (Registration ) [address] [place] [address] [place], [address], 04/03/2024 20:50:58 04/03/20 24 04/03/2024 COMPL ETE BLOOD COUNT W/DIF F MCV 84 fL 80-95 normal Not Available [facility] (Registration ) [address] [place] [address] [place], [address], 04/03/2024 20:50:58 04/03/20 24 04/03/2024 COMPL ETE BLOOD COUNT W/DIF F MCH 27.7 pg 27.0-3 3.0 normal Not Available [facility] (Registration ) [address] [place] [address] [place], [address], 04/03/2024 20:50:58 04/03/20 24 04/03/2024 COMPL ETE BLOOD COUNT W/DIF F MCHC 32.8 % 32.0-3 6.0 normal Not Available [facility] (Registration ) [address] [place] [address] [place], [address], 04/03/2024 20:50:58 04/03/20 24 04/03/2024 COMPL ETE BLOOD COUNT W/DIF F RDW 15.5 % 11.7-1 4.6 high Not Available [facility] (Registration ) [address] [place] [address] [place], [address], 04/03/2024 20:50:58 04/03/20 24 04/03/2024 COMPL ETE BLOOD COUNT W/DIF F platelet count 708 10_3/ uL 130-40 0 high Not Available [facility] (Registration ) [address] [place] [address] [place], [address], 04/03/2024 20:50:58 04/03/20 24 04/03/2024 COMPL ETE BLOOD COUNT W/DIF F MPV 8.3 fL 8.0-11 .0 normal Not Available [facility] (Registration ) [address] [place] [address] [place], [address], 04/03/2024 20:50:58 04/03/20 24 04/03/2024 COMPL ETE BLOOD COUNT W/DIF F neutrophils % 73.4 % Not Available [facility] (Registration ) [address] [place] [address] [facility] [place], [address], 04/03/2024 20:50:58 04/03/20 24 04/03/2024 COMPL ETE BLOOD COUNT W/DIF F lymphocytes % 15.8 % Not Available [facility] (Registration ) [address] [place] [address] [place], [address], 04/03/2024 20:50:58 04/03/20 24 04/03/2024 COMPL ETE BLOOD COUNT W/DIF F monocytes % 8.4 % Not Available [facility] ([facility] ) [address] [place] [address] [place], [address], 04/03/2024 20:50:58 04/03/20 24 04/03/2024 COMPL ETE BLOOD COUNT W/DIF F eosinophils % 0.7 % Not Available [facility] (Registration ) [address] [place] [address] [place], [address], 04/03/2024 20:50:58 04/03/20 24 04/03/2024 COMPL ETE BLOOD COUNT W/DIF F basophils % 0.9 % Not Available [facility] (Registration ) [address] [place] [address] [place], [address], 04/03/2024 20:50:58 04/03/20 24 04/03/2024 COMPL ETE BLOOD COUNT W/DIF F immature grans % 0.8 % Not Available [facility] (Registration ) [address] [place] [address] [place], [address], 04/03/2024 20:50:58 04/03/20 24 04/03/2024 COMPL ETE BLOOD COUNT W/DIF F nucleated RBC 0.0 % 0.0-0. 3 normal Not Available [facility] (Registration ) [address] [place] [address] [place], [address], 04/03/2024 20:50:58 04/03/20 24 04/03/2024 COMPL ETE BLOOD COUNT W/DIF F absolute neutrophil count 10.46 10_3/ uL 1.2-6. 7 high Not Available [facility] (Registration ) [address] [place] [address] [place], [address], 04/03/2024 20:50:58 04/03/20 24 04/03/2024 COMPL ETE BLOOD COUNT W/DIF F absolute lymphocyte count 2.25 10_3/ uL 1.2-3. 4 normal Not Available [facility] (Registration ) [address] [place] [address] [place], [address], 04/03/2024 20:50:58 04/03/20 24 04/03/2024 COMPL ETE BLOOD COUNT W/DIF F absolute monocyte count 1.20 10_3/ uL 0.1-0. 8 high Not Available [facility] (Registration ) [address] [place] [address] [place], [address], 04/03/2024 20:50:58 04/03/20 24 04/03/2024 COMPL ETE BLOOD COUNT W/DIF F absolute eosinophil count 0.10 10_3/ uL 0.0-0. 7 normal Not Available [facility] (Registration ) [address] [place] [address] [place], [address], 04/03/2024 20:50:58 04/03/20 24 04/03/2024 COMPL ETE BLOOD COUNT W/DIF F absolute basophil count 0.13 10_3/ uL 0.0-0. 2 normal Not Available [facility] (Registration ) [address] [place] [address] [place], [address], 04/03/2024 20:50:58 04/03/20 24 04/06/2024 TISSU E TRANS GLUTA CHANCE E PANEL tissue transglutami nase Ab IgA <1.2 U/mL <4.0 Not Available Angella [address] [place], [address] 04/08/2024 10:53:35 04/03/20 24 04/06/2024 TISSU E TRANS GLUTA CHANCE E PANEL tissue transglutami nase Ab IgG 1.7 U/mL Not Available Angella max [address] [place], [address] 04/08/2024 10:53:35 04/04/20 24 04/04/2024 C DIFF PCR C diff PCR Negati ve negati ve Not Available [address] [place], [address] 04/04/2024 20:14:09 04/04/20 24 04/05/2024 FECAL BACTE RIAL PATHO GENS PCR salmonella PCR Negati ve negati ve Not Available [address] [place], [address] 04/08/2024 10:50:36 04/04/20 24 04/05/2024 FECAL BACTE RIAL PATHO GENS PCR shigella/ent eroinvasive ecoli Negati ve negati ve Not Available [address] [place], [address] 04/08/2024 10:50:36 04/04/20 24 04/05/2024 FECAL BACTE RIAL PATHO GENS PCR campylobacte r PCR Negati ve negati ve Not Available [address] [place], [address] 04/08/2024 10:50:36 04/04/20 24 04/05/2024 FECAL BACTE RIAL PATHO GENS PCR shiga toxin PCR Negati ve negati ve Not Available [address] [place], [address] 04/08/2024 10:50:36 04/04/20 24 04/08/2024 OVA ODESSA ITE parasite growth SEE BELOW Not Available [address] [place], [address] 04/08/2024 11:27:37 04/04/20 24 04/05/2024 FECAL BACTE RIAL PATHO GENS PCR salmonella PCR Negati ve negati ve Not Available [address] [place], [address] 04/08/2024 11:27:37 04/04/20 24 04/05/2024 FECAL BACTE RIAL PATHO GENS PCR shigella/ent eroinvasive ecoli Negati ve negati ve Not Available [address] [place], [address] 04/08/2024 11:27:37 04/04/20 24 04/05/2024 FECAL BACTE RIAL PATHO GENS PCR campylobacte r PCR Negati ve negati ve Not Available [address] [place], [address] 04/08/2024 11:27:37 04/04/20 24 04/05/2024 FECAL BACTE RIAL PATHO GENS PCR shiga toxin PCR Negati ve negati ve Not Available [address] [place], [address] 04/08/2024 11:27:37 04/04/20 24 04/09/2024 CALPR OTECT IN calprotectin 274 mcg/g abnormal Not Available [address] [place], [address] 04/10/2024 08:52:58 04/04/20 24 04/04/2024 speci men colle ction & handl ing* Specimen collection and handling performed today: Yes Not Available [facility] [place] [address] [facility] [address], [place], [address], 04/04/2024 10:14:28 04/26/20 24 04/26/2024 COMPL ETE BLOOD COUNT NO DIFF WBC 11.10 10_3/ uL 4.4-10 .8 high Not Available [address] [place], [address] 04/26/2024 11:20:53 04/26/20 24 04/26/2024 COMPL ETE BLOOD COUNT NO DIFF RBC 4.09 10_6/ uL 3.93-5 .22 normal Not Available [address] [place], [address] 04/26/2024 11:20:53 04/26/20 24 04/26/2024 COMPL ETE BLOOD COUNT NO DIFF HGB 11.2 g/dL 11.2-1 5.7 normal Not Available [address] [place], [address] 04/26/2024 11:20:53 04/26/20 24 04/26/2024 COMPL ETE BLOOD COUNT NO DIFF HCT 35.4 % 36.0-4 6.0 low Not Available [address] [place], [address] 04/26/2024 11:20:53 04/26/20 24 04/26/2024 COMPL ETE BLOOD COUNT NO DIFF MCV 87 fL 80-95 normal Not Available [address] [place], [address] 04/26/2024 11:20:53 04/26/20 24 04/26/2024 COMPL ETE BLOOD COUNT NO DIFF MCH 27.4 pg 27.0-3 3.0 normal Not Available [address] [place], [address] 04/26/2024 11:20:53 04/26/20 24 04/26/2024 COMPL ETE BLOOD COUNT NO DIFF MCHC 31.6 % 32.0-3 6.0 low Not Available [address] [place], [address] 04/26/2024 11:20:53 04/26/20 24 04/26/2024 COMPL ETE BLOOD COUNT NO DIFF RDW 16.5 % 11.7-1 4.6 high Not Available [address] [place], [address] 04/26/2024 11:20:53 04/26/20 24 04/26/2024 COMPL ETE BLOOD COUNT NO DIFF platelet count 612 10_3/ uL 130-40 0 high Not Available [address] [place], [address] 04/26/2024 11:20:53 04/26/20 24 04/26/2024 COMPL ETE BLOOD COUNT NO DIFF MPV 7.8 fL 8.0-11 .0 low Not Available [address] [place], [address] 04/26/2024 11:20:53 04/26/20 24 04/26/2024 BASIC METAB OLIC PANEL calcium 8.4 mg/dL 8.5-10 .1 low Not Available [address] [place], [address] 04/26/2024 12:16:04 04/26/20 24 04/26/2024 BASIC METAB OLIC PANEL glucose 80 mg/dL 74-106 normal Not Available [address] [place], [address] 04/26/2024 12:16:04 04/26/20 24 04/26/2024 BASIC METAB OLIC PANEL BUN 17 mg/dL 7-18 normal Not Available [facility] [address] [place], [address] 04/26/2024 12:16:04 04/26/20 24 04/26/2024 BASIC METAB OLIC PANEL creatinine 0.5 mg/dL 0.55-1 .02 low Not Available [address] [place], [address] 04/26/2024 12:16:04 04/26/20 24 04/26/2024 BASIC METAB OLIC PANEL estimated GFR 103.38 mL/min /1.73m 2 Not Available [address] [place], [address] 04/26/2024 12:16:04 04/26/20 24 04/26/2024 BASIC METAB OLIC PANEL sodium 137 mmol/ L 136-14 5 normal Not Available [address] [place], [address] 04/26/2024 12:16:04 04/26/20 24 04/26/2024 BASIC METAB OLIC PANEL potassium 4.1 mmol/ L 3.5-5. 1 normal Not Available [address] [place], [address] 04/26/2024 12:16:04 04/26/20 24 04/26/2024 BASIC METAB OLIC PANEL chloride 103 mmol/ L 98-107 normal Not Available [address] [place], [address] 04/26/2024 12:16:04 04/26/20 24 04/26/2024 BASIC METAB OLIC PANEL CO2 27.3 mmol/ L 21.0-3 2.0 normal Not Available [address] [place], [address] 04/26/2024 12:16:04 04/26/20 24 04/26/2024 BASIC METAB OLIC PANEL anion gap 6.7 mmol/ L 3-11 normal Not Available [address] [place], [address] 04/26/2024 12:16:04 04/26/20 24 04/26/2024 ALBUM IN albumin 2.0 g/dL 3.4-5. 0 low Not Available [address] [place], [address] 04/26/2024 12:16:04 04/26/20 24 04/26/2024 LIVER PANEL total protein 5.9 g/dL 6.4-8. 2 low Not Available [address] [place], [address] 04/26/2024 12:19:11 04/26/20 24 04/26/2024 LIVER PANEL albumin 2.0 g/dL 3.4-5. 0 low Not Available [address] [place], [address] 04/26/2024 12:19:11 04/26/20 24 04/26/2024 LIVER PANEL bilirubin, total 0.2 mg/dL 0.2-1. 0 normal Not Available [address] [place], [address] 04/26/2024 12:19:11 04/26/20 24 04/26/2024 LIVER PANEL alk phos 98 U/L 46-116 normal Not Available [facility] [address] [place], [address] 04/26/2024 12:19:11 04/26/20 24 04/26/2024 LIVER PANEL AST 18 U/L 15-37 normal Not Available [facility] [address] [place], [address] 04/26/2024 12:19:11 04/26/20 24 04/26/2024 LIVER PANEL ALT 25 U/L 14-59 normal Not Available [facility] [address] [place], [address] 04/26/2024 12:19:11 04/26/20 24 04/26/2024 LIVER PANEL bilirubin, conjugated 0.1 mg/dL 0.0-0. 2 normal Not Available [address] [place], [address] 04/26/2024 12:19:11 04/26/20 24 04/26/2024 CEA cea 5.0 NG/mL see note Not Available [address] [place], [address] 04/29/2024 08:27:29 0705/20/2024 mammo graph y imagi ng repor t [place] Name: Dung Rendon Unit #: [id number] Loc: DI Orderi ng Provid er: Gabrielle Norman #: [id number] Status : REG CLI Primar y Care Provid er: Gabrielle Norman Date of Exam: 07/06 Sex: F Admiss ion Date: : 1954 Age: 68 Exam(s ) MG MAMMO SCREEN ING EXAM: MG MAMMO SCREEN ING CLINIC AL HISTOR Y: Screen ing, Z12.39 . TECHNI QUE: Bilate ral full field digita l CC and MLO mammog raphic images were obtain ed with 3D tomosy nthesi s and utiliz ing comput er aided detect ion (CAD). COMPAR LILIAN: 2006 FINDIN GS: There has been signif icant interv al decrea se in breast size and signif icant increa se in breast densit y compar ed with the previo us exam. Masses : None seen. Sav ectura l Distor tion: None seen. Microc alcifi cation s: No suspic ious pleomo rphic- type are seen. Skin Thicke molina/N ipple Retrac tion: None. IMPRES EVAN: 1. Extrem iris dense breast tissue . 2. Unless there is more urgent need, annual screen ing mammog shy is recomm ended, as per [facility] guidel goldy. BI-RAD S Catego ry 1-nega tive Breast Densit y - Catego ry D - extrem iris dense Breast Densit y Catego ry D: The mammog sarmad demons trates the kashmir avilez's breast tissue is dense. Dense breast tissue is very common and is not abnorm al but dense breast tissue can make it harder to find cancer on a mammog sarmad. Also, dense breast tissue may increa se their breast cancer risk. This inform ation about the result of the mammog sarmad report was provid ed to the kashmir avilez to raise their awaren ess. Use this report when you speak with the kashmir avilez about their risks for breast cancer , which includ es their family histor y. At that time, you may recomm end for more screen ing tests (Ultra sound or MRI) as they might be useful based on their risk. A negati ve radiog raphic report should not delay biopsy if a domina nt or clinic ally suspic ious mass is presen t. Up to ten percen t of cancer s are not identi fied on mammog shy. A negati ve report may reinfo rce clinic al impres evan. Adenos is and dense breast s may obscur e an underl renetta neopla sm. False positi ve report s averag e 6 to 10%. Ordere d By: Gabrielle Norman CC: ------ ------ ------ ------ ------ ------ ------ ------ ------ ------ ------ ------ - Dictat ed By: Kvng Meade [id number] Transc ribed By: Thomas Troy 141 This is privil eged, confid ential inform ation intend ed only for the provid er named. Any use or distri bution by any person other than this provid er is strict ly prohib ited. If you receiv e this report in error, please notify us immedi darwinly at and return the origin al report to us at the addres s above. Thank- you. [facility] [address] [facility] , [place], [address] 05/20/2024 16:09:18 Result Notes None recorded. Problems Name Status Onset Date Resolution Date Notes Provider Name and Address Organization Details Recorded Time Chronic diarrhea Active [address], [place], [address], [facility] 04/03/2024 11:34:32 Abnormal weight loss Active [address], [place], [address], [facility] 04/03/2024 11:35:11 Fatigue Active [address], [place], [address], [facility] 04/03/2024 11:35:26 Mass of colon Active [address], [place], [address], [facility] 05/06/2024 12:39:41 Problem Notes None recorded. Procedures Surgical History Date Name Laterality Status Provider Name and Address Organization Details Recorded Time Colonoscopy completed Lucila Amaya RN [facility] 05/07/2024 14:42:05 hernia repair completed CASIE WHITAKER MA [facility], [facility] 04/03/2024 11:05:06 Imaging Results Imaging Date Name Status LastModified by [place] jeffersonformerly [place] hospital Details LastModified Time 05/20/2024 mammography imaging report completed [facility] [address] , [place], [address] 05/20/2024 16:09:18 Procedure Notes None recorded. Medical Equipment None Reported. Allergies No known drug allergies Medications Not known to be on any medication Vitals Date Recorded Body height Body mass index (BMI) Body weight Oxygen saturation Oxygen saturation in Arterial blood by Pulse oximetry Heart rate Systolic blood pressure Diastolic blood pressure Provider Name and Address Organization Details Last Updated DateTime 4 163.32 cm 16.8 kg/m2 95967.9 3 g 97 % 97 % 97 /min 116 mm[Hg] 74 mm[Hg] CASIE WHITAKER MA [facility] 4 11:08:06 Date Recorded Body height Oxygen saturation Oxygen saturation in Arterial blood by Pulse oximetry Body mass index (BMI) Body weight Systolic blood pressure Diastolic blood pressure Provider Name and Address Organization Details Last Updated DateTime 4 163.32 cm 98 % 98 % 16.8 kg/m2 52741.9 8 g 104 mm[Hg] 60 mm[Hg] Ric Polanco RN [facility] 10:43:58 Social History Question Answer Notes LastModified by Organizat ion Details LastModified Time Tobacco Smoking Status Former Smoker CASIE WHITAKER MA [facility], [place] - [facility]. 04/03/2024 11:04:46 Would You Say That, In General, Your Health Is Fair [email or web address] Information not available 04/03/2024 How Often Does Anyone, Including Family, Physically Hurt You? Never [email or web address] Information not available 04/03/2024 How Often Does Anyone, Including Family, Insult Or Talk Down To You? Never Information no t available 04/03/2024 How Often Does Anyone, Including Family, Threaten You With Harm? Never [email or web address] Information not available 04/03/2024 How Often Does Anyone, Including Family, Scream Or Curse At You? Never [email or web address] Information not available 04/03/2024 Within The Past 12 Months, You Worried That Your Food Would Run Out Before You Got Money To Buy More. Never True [email or web address] Information n ot available 04/03/2024 Within The Past 12 Months, The Food You Bought Just Didn't Last And You Didn't Have Money To Get More. Never True [email or web address] Information not available 04/03/2024 How Hard Is It For You To Pay For The Very Basics Like Food, Housing, Medical Care, And Heating? Would You Say It Is: Not Hard At All [email or web address] Information not available 04/03/2024 In The Past 12 Months, Has Lack Of Reliable Transportation Kept You From Medical Appointments, Meetings, Work Or From Getting Things Needed For Daily Living? No [email or web address] Information not available 04/03/2024 What Is Your Housing Situation Today? I Have Housing. [email or web address] Information not available 04/03/2024 How Often In The Past Year Have You Used Marijuana (including Smoking, Vaping, Dabbing, Or Edibles)? Never [email or web address] Information not available 04/03/2024 How Often In The Past Year Have You Used Prescription Medications That Were Not Prescribed To You? Never Information not available 04/03/2024 How Often In The Past Year Have You Taken Your Own Prescription Medication More Than The Way It Was Prescribed Or For Different Reasons Than Its Intended Purpose? Never Information not available 04/03/2024 How Often In The Past Year Have You Used Other Drugs (for Example, Heroin, Cocaine, Meth, Salvia, Inhalants)? Never [email or web address] Information not available 04/03/2024 Date Of Most Recent SBINS 02/29/2024 [email or web address] Information not available 04/03/2024 Sex: Unknown Functional Status None recorded. Mental Status None recorded. Family History Relationship Description Onset Age of this Age Resolved Age Notes Father Diabetes mellitus Unspecified Relation Celiac disease 18 grandson with celiac Notes:brother as stent put i n and mental illness No family history of cancer Medical History No medical history recorded. Gynecological HistoryNo gynecological history recorded. Obstetrics History GPAL:G 0 P 0 0 0 0 Immunizations Vaccine Type Date Status Provider Name and Address Organization Details Recorded Time Tdap 04/03/[address], [place], [address], [facility] 04/03/2024 12:21:03 Past Encounters Encounter ID Performer Location Encounter Start Date Encounter Closed Date Diagnosis/Indication Diagnosis SNOMED-CT Code [id number] [facility] [address] [address] 04/03/2024 10:51:42 04/03/2024 12:07:08 Chronic diarrhea 033276318 Abnormal weight loss 267 834719 Fatigue 56773158 Screening for malignant neoplasm of breast 519216312 Active or passive immunization [id number] BRANDEE SHEPHERD LPN [address] [address] 04/04/2024 10:11:49 04/04/2024 10:40:24 Chronic diarrhea 256409626 [id number] ANIYA [address] [address] 05/06/2024 10:39:04 05/06/2024 11:18:29 Mass of colon 717238585 Health Concerns Section Related Observation LastModified by Organization Detai ls LastModified Time None Recorded Concern Status LastModified by Organization Details LastModified Time None Recorded Advance Directives Directive None Recorded Payers Encounter Date Sequence Insurance Name Policy Number Policy Osman Covered Member ID Osman Member ID Guarantor Name 04/03/2024 2 [place] [employer] Bridget A Ely [id number] Bridget A Ely 04/03/2024 1 [facility] (MEDICARE REPLACEMENT PPO) [id number] Bridget A Ely [id number] Bridget A Ely 04/04/2024 2 [place] [employer] Bridget A Ely [id number] Bridget A Ely 04/04/2024 1 [facility] - MEDICARE [facility] (MEDICARE REPLACEMENT PPO) [id number] Bridget A Ely [id number] Bridget A Ely 05/06/2024 2 [place] [employer] Bridget A Ely [id number] Bridget A Ely 05/06/2024 1 [facility] - MEDICARE [facility] (MEDICARE REPLACEMENT PPO) [id number] Bridget A Ely [id number] Bridget A Ely Notes Date Note Type Note Provider Name and Address Organization Details Recorded Time 04/03/2024 text/html HPI Notes: cc Diarrhea, weight loss, low energy Diarrhea - started about 1.5 years ago, no blood in stool, but has moved her bowels x 4 since 5 am this am. Sometimes liquidy sometimes like pellets. Has lots of abdominal pain and swelling. Feels hard at times, feels crampy. 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 But she used to go home and through up after work at least a couple of times a month. Weight loss - has lost about 30 pounds in the past 1.5 years Non smoker, quit age 63 ETOH - last drink 10/2023. Never been a heavy drinker Retired in January has hx of anorexia in her 20s has been this slim in the past [address], [place], [address], [facility]. 04/03/2024 12:22:05 05/06/2024 text/html HPI Notes: cc follow up Diarrhea, gas Diarrhea has improved - not taking any medications. Still no blood in stool Colon mass - had mass found on colonoscopy bx positive for carcinoma, also had polyp that is TA Has follow up scheduled with Dr. Chen tomorrow and CT scan scheduled after her visit. Does not feel stressed out, family members are stressed. All of her children have had colonoscopies Has had low albumin, renal function normal, mildly abnormal CBC Appetite has been ok - has been eating fruits veggies, and protein [address], [place], [address], [facility] 05/06/2024 12:43:57 OBGyn Episode No OBEpisode recorded.
--- OUTSIDE RECORDS SUMMARY | 2024-05-24 00:56 | XMS_ITS | Continuity of Care Document ---
Author Organization [facility] Address [address] [place] [address] Assessment No assessment recorded. Plan of Treatment Reminders Order Date Submit Date Provider Last Modified By Organization Details Last Modified Time Details Appointments None record ed. Lab None record ed. Referral None record ed. Procedures None record ed. Surgeries None record ed. Imaging None record ed. Medication Orders None record ed. Patient TargetsNo targets recorded. Patient Instructions Encounter Date Encounter Id Patient Instructions Last Modified By Organization Details Last Modified Time 05/06/2024 [id number] When you are at [facility] tomorrow, please schedule your mammogram Let me [...] Range Abnormal Flag LastModifiedBy Organization Detail LastModifiedTime 05/20/2005/20/2024 mammo graph y imagi ng repor t Ruslan t Name: Dung Rendon Unit #: [id number] Loc: DI Orderi ng Provid er: Gabrielle Norman Accoun t #: [id number] Status : REG CLI Primar y [...] D: The mammog sarmad demons trates the patien t's breast tissue is dense. Dense breast tissue is very common and is not abnorm al but dense breast tissue can make it harder to find cancer on a mammog sarmad. Also, dense breast tissue may increa se their breast cancer risk. This inform ation about the result of the mammog sarmad report was provid ed to the patien t to raise their awaren ess. Use this report when you speak with the patien t about their risks for breast cancer , [...] ------ - Dictat ed By: Kvng Meade 1416 Transc ribed By: Thomas Troy 1416 This is privil eged, confid ential inform ation intend ed only for the provid er named. Any use or distri bution by any person other than this provid er is strict ly prohib ited. If you receiv e this report in error, please notify us immedi aleja at and return the origin al report to us at the addres s above. Thank- you. [facility] [address], [place], [address] 05/20/2024 16:09:18 Result Notes None recorded. Problems Name Status Onset Date Resolution Date Notes Provider Name and Address Organization Details Recorded Time Chronic diarrhea Active [address], [place], [address], [facility] 04/03/2024 11:34:32 Abnormal weight loss Active [address], [place], [address], [facility] 04/03/2024 11:35:11 Fatigue Active [address], [place], [address], [facility] 04/03/2024 11:35:26 Mass of colon Active [address], [place], [address], [facility] 05/06/2024 12:39:41 Problem Notes None recorded. Procedures Surgical History Date Name Laterality Status Provider Name and Address Organization Details Recorded Time Colonoscopy completed Lucila Amaya RN [facility], [facility] 05/07/2024 14:42:05 hernia repair completed WILLIAMS KELLER, [facility] 04/03/2024 11:05:06 Imaging Results None recorded. Procedure Notes None recorded. Medical Equipment None Reported. Allergies No known drug allergies Medications Not known to be on any medication Vitals Date Recorded Body height Oxygen saturation Oxygen saturation in Arterial blood by Pulse oximetry Body mass index (BMI) Body weight Systolic blood pressure Diastolic blood pressure Provider Name and Address Organization Details Last Updated DateTime 4 163.32 cm 98 % 98 % 16.8 kg/m2 35652.9 8 g 104 mm[Hg] 60 mm[Hg] Ric Polanco RN [facility] 10:43:58 Social History Question Answer Notes LastModified by Organizat ion Details LastModified Time Tobacco Smoking Status Former Smoker WILLIAMS KELLER, [facility] 04/03/2024 11:04:46 Would You Say That, In General, Your Health Is Fair [email or web address] Information not available 04/03/2024 How Often Does Anyone, Including Family, Physically Hurt You? Never [email or web address] Information not available 04/03/2024 How Often Does Anyone, Including Family, Insult Or Talk Down To You? Never [email or web address] Information no t available 04/03/2024 How Often Does Anyone, Including Family, Threaten You With Harm? Never [email or web address] Information not available 04/03/2024 How Often Does Anyone, Including Family, Scream Or Curse At You? Never [email or web address] Information not available 04/03/2024 Within The Past 12 Months, You Worried That Your Food Would Run Out Before You Got Money To Buy More. Never True [email or web address] Information n ot available 04/03/2024 Within The Past 12 Months, The Food You Bought Just Didn't Last And You Didn't Have Money To Get More. Never True [email or web address] Information not available 04/03/2024 How Hard Is It For You To Pay For The Very Basics Like Food, Housing, Medical Care, And Heating? Would You Say It Is: Not Hard At All [email or web address] Information not available 04/03/2024 In The Past 12 Months, Has Lack Of Reliable Transportation Kept You From Medical Appointments, Meetings, Work Or From Getting Things Needed For Daily Living? No [email or web address] Information not available 04/03/2024 What Is Your Housing Situation Today? I Have Housing. [email or web address] Information not available 04/03/2024 How Often In The Past Year Have You Used Marijuana (including Smoking, Vaping, Dabbing, Or Edibles)? Never [email or web address] Information not available 04/03/2024 How Often In The Past Year Have You Used Prescription Medications That Were Not Prescribed To You? Never [email or web address] Information not available 04/03/2024 How Often In The Past Year Have You Taken Your Own Prescription Medication More Than The Way It Was Prescribed Or For Different Reasons Than Its Intended Purpose? Never [email or web address] Information not available 04/03/2024 How Often In The Past Year Have You Used Other Drugs (for Example, Heroin, Cocaine, Meth, Salvia, Inhalants)? Never [email or web address] Information not available 04/03/2024 Date Of Most Recent SBINS 02/29/2024 [email or web address] Information not available 04/03/2024 Sex: Unknown Functional [...] Recorded Time Tdap 04/03/2024 completed [address], [place], [address], [facility]. 04/03/2024 12:21:03 Past Encounters Encounter ID Performer Location Encounter Start Date Encounter Closed Date Diagnosis/Indication Diagnosis SNOMED-CT Code [id number] BOOM [facility]ACKSON [facility] [address] [place] [address] 05/06/2024 10:39:04 05/06/2024 11:18:29 Mass of colon 726676322 Health Concerns Section Related Observation LastModified by Organization Detai ls LastModified Time None Recorded Concern Status LastModified by Organization Details LastModified Time None Recorded Payers Encounter Date Sequence Insurance Name Policy Number Policy Osman Covered Member ID Osman Member ID Guarantor Name 05/06/2024 2 [place] [employer] Bridget Graves [id number] Bridget Graves 05/06/2024 1 [facility] - MEDICARE ADVANTAGE (MEDICARE REPLACEMENT PPO) [id number] Bridget Graves [id number] Bridget Gravse Notes Date Note Type Note Provider Name and Address Organization Details Recorded Time 05/06/2024 text/html HPI Notes: cc follow up [...] eating fruits veggies, and protein [address], [place], [address], [facility]. 05/06/2024 12:43:57 OBGyn Episode No OBEpisode recorded.
--- OUTSIDE RECORDS SUMMARY | 2024-05-24 00:56 | XMS_ITS | Clinical Summary ---
Author Organization [facility] Address [address] [place] [address] Care Team Providers Care Patient Case Coordinator Name Role Phone Vivian Park Primary Care Provider [phone] Encounters Date Type Department Care Team Description 04/26/2024 Lab Requisition [facility] Pathology & Laboratory [address] [address] Charbel Chen MD Encounter for screening for malignant neoplasm of colon 04/26/2024 Lab Requisition [facility] [address] [address] Outr Resulting Lab, Provider 04/05/2024 Lab Requisition [facility] [address] [address] Outr Resulting Lab, Provider from Last 3 Months Social History Tobacco Use Types Packs/Day Years Used Date Smoking Tobacco: Never Assessed Sex and Gender Information Value Date Recorded Sex Assigned at Not on file Gender Identity Not on file Sexual Orientation Not on file Plan of Treatment Health Maintenance Due Date Last Done Comments Hepatitis C Screen 1955 RSV Immunization ( o r 60+ Years) (1 - 1-dose 60+ series) 2017 Fall Risk Screening 2022 COVID-19 Vaccine ( season) 2023 Procedures Procedure Name Priority Date/Time Associated Diagnosis Comments CEA Routine 04/26/2024 11:10 EDT SURGICAL PATHOLOGY Today 04/26/2024 10 :15 EDT Encounter for screening for malignant neoplasm of colon FECAL BACTERIAL PATHOGENS BY PCR Routine 04/04/2024 7:00 EDT OVA/PARASITE EXAM Routine 04/04/2024 7:00 EDT from Last 3 Months Results * CEA (04/26/2024 11:10 EDT) CEA 5.0 See Note ng/mL 04/26/2024 20:36 EDT [facility] Comment: % Distribution of CEA (ng/mL): ??0.0 - 2.5 in 98.2% of Nonsmokers and 87.3% of Smokers ??2.6 - 5 in 1.8% of Nonsmokers and 8% of Smokers ??5.1 - 10.1 in 4.7% of Smokers NOTE: Serum CEA concentration should not be interpeted as absolute evidence for the presence or absence of malignant disease. ?? Assayed on Siemens NeuroVistaIA [employer] XPT using chemiluminescent technology. ??Values obtained by different assay methods cannot be used interchangeably. Blood VENOUS BLOOD / Unknown 04/26/2024 11:10 EDT 04/26/2024 17:31 EDT Provider Outr Resulting Lab CHEMISTRY & BLOOD GAS ORDERABLES [facility] [address] [place] [address] * SURGICAL PATHOLOGY (04/26/2024 10:15 EDT) Note to Patient The following pathology results have been interpreted by your pathologist and may be available to you before your health provider has had the opportunity to review them. Please allow time for your provider to receive these results and explore management options, if applicable. 05/02/2024 16:36 EDT [facility] Final Diagnosis A. 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 - Deeper levels examined. - See comment. B. COLON, 25 CM, POLYP, BIOPSY: - Tubulovillous adenoma. - Stalk margin negative for lesion. - Sessile serrated adenoma. 05/02/2024 16:36 EDT [facility] Diagnosis Comment Due to the superficial nature of the biopsy, underlying invasive carcinoma into the submucosa is not excluded. Clinical correlation is recommended. Transition Rn slides of this case were reviewed at the gastrointestinal/ servando intradepartmental consultation conference. (AMS, ABS) 05/02/2024 16:36 [facility] Attestation There was significant resident/fellow involvement in the diagnostic evaluation of this case. By the signature below, the attending physician certifies that they have personally conducted a gross and/or microscopic examination of the described specimens and rendered or confirmed the above diagnosis. 05/02/2024 16:36 [facility] at 1636 Clinical History Screening 05/02/2024 16:36 [facility] Gross Description A. Received in [...] B4. Bibi Beth 04/27/2024 9:20 05/02/2024 16:36 [facility] Resident/Fell ow: James Ramesh DO 05/02/2024 16:36 [facility] Performing Lab [facility] 05/02/2024 16:36 [facility] Scanned Images 05/02/2024 16:36 [facility] Tissue COLON STRUCTURE / Unknown 04/26/2024 10:15 EDT 04/26/2024 17:55 EDT Tissue specimen (specimen) COLON STRUCTURE / Unknown 04/26/2024 10:15 EDT 04/26/2024 17:55 EDT Charbel Chen MD PATHOLOGY ORDERABLES Performing Organization Address City/[facility]/ZIP Co de Phone Number [facility] [address] [place], [place] [phone] * FECAL BACTERIAL PATHOGENS BY PCR (04/04/2024 7:00 EDT) Salmonella PCR Negative Negative 04/05/2024 23:36 EDT [facility] Shigella/Enteroin vasive E. coli Negative Negative 04/05/2024 23:36 EDT [facility] HN LAB CAMPYLOBACTER PCR Negative Negative 04/05/2024 23:36 EDT [facility] Shiga Toxin PCR Negative Negative 23:36 EDT [facility] Feces SPECIMEN FROM RECTUM / Unknown 04/04/2024 7:00 EDT 04/05/2024 18:49 EDT Provider Outr Resulting Lab MICROBIOLOGY - GENERAL ORDERABLES Performing Organization Address [facility] Co de Phone Number [facility] [address] [place] [address] * OVA/PARASITE EXAM (04/04/2024 7:00 EDT) Parasite No ova and parasites seen. 04/08/2024 11:18 EDT [facility] Feces SPECIMEN FROM RECTUM / Unknown 04/04/2024 7:00 EDT 04/05/2024 18:49 EDT Narrative [facility] - 04/08/2024 11:18 EDT (If Cryptosporidium, Cyclospora, or Microsporidium are suspected, specific tests must be requested.) Single negative specimen does not rule out the possibility of a parasitic infection. Provider Outr Resulting Lab MICROBIOLOGY - GENERAL ORDERABLES Performing Organization Address City/[facility]/ZIP Co de Phone Number [facility] [address] [place] [address] from Last 3 Months Care Teams Patient Case Coordinator Relationship Specialty Start Date End Date Vivian Park PA [address] [place], [place] [phone] PCP - General 09/18/15
--- OUTSIDE RECORDS SUMMARY | 2024-05-24 00:56 | XMS_ITS | Continuity of Care Document ---
Author Organization [place] - [facility] Address [address] [place] [address] Assessment No assessment recorded. Plan of Treatment [...] Modified By Organization Details Last Modified Time 04/04/2024 [id number] specimen collection & handling* Not available 04/04/2024 10:52:19 Reason for Referral General Surgeon Referral for Chronic diarrhea chronic diarrhea with associated weight loss and fatigue x one year, stool studies pending Referring Physician: Niurka Norman, Family Medicine, Encounter Date: 04/03/2024 Results Created Date Observation Date Name Description Value Unit Range Abnormal Flag LastModifiedBy Organization Detail LastModifiedTime 04/04/20 24 04/04/2024 speci men colle ction & handl ing* Specimen collection and handling performed today: Yes Not Available [facility] [place] [address], [place], [address], 04/04/2024 10:14:28 05/20/20 24 05/20/2024 mammo graph y imagi ng repor t Patialverto t Name: Dung Rendon Unit #: [id number] Loc: DI Orderi ng Provid er: Gabrielle Norman Accoun t #: [id number] Status : REG CLI Primar y [...] at the addres s above. Thank- you. [facility] [address], [place], [address] 05/20/2024 16:09:18 Result Notes None recorded. Problems Name Status Onset Date Resolution Date Notes Provider Name and Address Organization Details Recorded Time Chronic diarrhea Active [address], [place], [address], [facility] 04/03/2024 11:34:32 Abnormal weight loss Active [address], [place], [address], [facility] 04/03/2024 11:35:11 Fatigue Active [address], [place], [address], [facility] 04/03/2024 11:35:26 Mass of colon Active [address], [place], [address], [facility] 05/06/2024 12:39:41 Problem Notes None recorded. Procedures Surgical History Date Name Laterality Status Provider Name and Address Organization Details Recorded Time Colonoscopy completed Lucila Amaya RN [facility], [facility] 05/07/2024 14:42:05 hernia repair completed CASIE WHITAKER MA null, [facility] 04/03/2024 11:05:06 Imaging Results None recorded. Procedure Notes None recorded. Medical Equipment None Reported. Allergies No known drug allergies Medications Not known to be on any medication Vitals None Recorded Social History Question Answer Notes LastModified by Organizat ion Details LastModified Time Tobacco Smoking Status Former Smoker WILLIAMS KELLER, [facility] 04/03/2024 11:04:46 Would You Say That, In General, Your Health Is Fair Information not available 04/03/2024 How Often Does Anyone, Including Family, Physically Hurt You? Never [email or web address] Information not available 04/03/2024 How Often Does Anyone, Including Family, Insult Or Talk Down To You? Never [email or web address] Information no t available 04/03/2024 How Often Does Anyone, Including Family, Threaten You With Harm? Never [id number] Information not available 04/03/2024 How Often Does Anyone, Including Family, Scream Or Curse At You? Never [email or web address] Information not available 04/03/2024 Within The Past 12 Months, You Worried That Your Food Would Run Out Before You Got Money To Buy More. Never True [email or web address] Information n ot available 04/03/2024 Within The Past 12 Months, The Food You Bought Just Didn't Last And You Didn't Have Money To Get More. Never True [email or web address] Information not available 04/03/2024 How Hard Is It For You To Pay For The Very Basics Like Food, Housing, Medical Care, And Heating? Would You Say It Is: Not Hard At All [email or web address] Information not available 04/03/2024 In The Past 12 Months, Has Lack Of Reliable Transportation Kept You From Medical Appointments, Meetings, Work Or From Getting Things Needed For Daily Living? No [email or web address] Information not available 04/03/2024 What Is Your Housing Situation Today? I Have Housing. Information not available 04/03/2024 How Often In The Past Year Have You Used Marijuana (including Smoking, Vaping, Dabbing, Or Edibles)? Never Information not available 04/03/2024 How Often In The Past Year Have You Used Prescription Medications That Were Not Prescribed To You? Never [email or web address] Information not available 04/03/2024 How Often In The Past Year Have You Taken Your Own Prescription Medication More Than The Way It Was Prescribed Or For Different Reasons Than Its Intended Purpose? Never Information not available 04/03/2024 How Often In The Past Year Have You Used Other Drugs (for Example, Heroin, Cocaine, Meth, Salvia, Inhalants)? Never [email or web address] Information not available 04/03/2024 Date Of Most Recent SBINS 02/29/2024 [email or web address] Information not available 04/03/2024 Sex: Unknown Functional [...] 04/03/2024 completed BOOM JACKSON [address], [place], [address], [facility]. 04/03/2024 12:21:03 Past Encounters Encounter ID Performer Location Encounter Start Date Encounter Closed Date Diagnosis/Indication Diagnosis SNOMED-CT Code [id number] BOOM JACKSON [facility] [address] [place] [address] 04/03/2024 10:51:42 04/03/2024 12:07:08 Chronic diarrhea 931353131 Abnormal weight loss 267 037667 Fatigue 38955610 Screening for malignant neoplasm of breast 267278763 Active or passive immunization 776871113 [id number] BRANDEE SHEPHERD LPN [address] [address] 04/04/2024 10:11:49 04/04/2024 10:40:24 Chronic diarrhea 615971825 Health Concerns Section Related Observation LastModified by Organization Detai ls LastModified Time None Recorded Concern Status LastModified by Organization Details LastModified Time None Recorded Payers Encounter Date Sequence Insurance Name Policy Number Policy Osman Covered Member ID Osman Member ID Guarantor Name 04/04/2024 2 [place]: [employer]ATIONAL [employer] Bridget Graves [id number] Bridget Graves 04/04/2024 1 [facility] (MEDICARE REPLACEMENT PPO) [id number] Bridget Graves [id number] Bridget Graves OBGyn Episode No OBEpisode recorded.
--- OUTSIDE RECORDS SUMMARY | 2024-05-24 00:56 | XMS_ITS | Continuity of Care Document ---
Author Organization [place] [facility] Address [address] [place] [address] Assessment Encounter Date Assessment Date Assessment LastModified by Organization Details LastModified Time 04/03/2024 04/03/2024 The total time devoted to today's encounter, including both the sqky-qq-fyam time with the patient and/or family/caregi servando and lhi-ddnk-dr-f ricardo time I personally spent is 45 minutes. Not available 04/03/2024 12:21:16 Plan of Treatment Reminders Order Date Submit Date Provider Last Modified By Organization Details Last Modified Time Details Appointments None recorded. Lab C diff toxin A+B, qualitative , stool - only if not ordered through GI pathogens panel 2023 024 [email or web address] [facility] (Registration ), [address] [place] [address] [place], [address], 4 10:07:49 calprotecti n, stool 2023 024 YONG [facility] (Registration ), [address] [place] [address] [place], [address], 4 08:52:58 O&P (ova & parasites), stool - only if not ordered through GI pathogens panel 2023 024 [email or web address] [facility] (Registration ), [address] [place] [address] [place], [address], 4 07:30:53 gastrointes tinal pathogens panel, culture, stool [address] [facility] (Registration ), [address] [place] [address] [place], [address], 4 07:30:54 TSH, serum, reflex free T4 2023 [facility] (Registration ), [address] [place] [address] [place], [address], 4 10:12:10 CMP, serum or plasma 2023 [facility] (Registration ), [address] [place] [address] [place], [address], 4 20:17:45 CBC w/ diff 2023 [facility] (Registration ), [address] [place] [address] [place], [address], 4 10:11:58 tissue transglutam inase, iga+igg Ab, serum [address] [facility] (Registration ), [address] [place] [address] [place], [address], 4 07:13:39 Referral general surgeon referral - chronic diarrhea with associated weight loss and fatigue x one year, stool studies pending 2023 [facility] General Surgery, [address] [place] [address] [place], [address], 4 07:32:48 Procedures None recorded. Surgeries None recorded. Imaging CT, abdomen + pelvis, w/o contrast - Chronic diarrhea, weight loss, fatigue 2023 024 [email or web address] [facility] Xray, [address], [place], [address], 4 08:49:08 MAMMO, screening, bilateral 2023 024 [email or web address] [address] [facility], [place], [address], 4 08:06:11 Medication Orders None recorded. Patient TargetsNo targets recorded. Patient Instructions Encounter Date Encounter Id Patient Instructions Last Modified By Organization Details Last Modified Time 04/03/2024 [id number] learning about the low fodmap diet for irritable bowel syndrome (IBS) Not available 04/03/2024 12:21:03 I will let you know the results of your lab work and testing as they become available. Please review Low FODMAP diet. I referred you for colonoscopy at [facility], you should be hearing from them to schedule an appointment If you feel worse please let me know Not available 04/03/2024 11:47:07 Reason for Referral General Surgeon Referral for Chronic diarrhea chronic diarrhea with associated weight loss and fatigue x one year, stool studies pending Referring Physician: Niurka Pantoja, Family Medicine, Encounter Date: 04/03/2024 Results Created Date Observation Date Name Description Value Unit Range Abnormal Flag LastModifiedBy Organization Detail LastModifiedTime 05/20/20 24 05/20/2024 mammo graph y imagi ng repor t Patien t Name: Dung Rendon Unit #: [id number] Loc: DI Orderi ng Provid er: Gabrielle Pantoja Accoun t #: [id number] Status : REG CLI Primar y Care Provid er: Gabrielle Pantoja Date of Exam: 07/06 Sex: F Admiss [...] 6 to 10%. Ordere d By: Gabrielle Pantoja: ------ ------ ------ ------ ------ ------ ------ ------ ------ ------ ------ ------ - Dictat ed By: Kvng Meade 1417 1417 Transc ribed By: Thomas Troy 1417 This is privil eged, confid ential inform ation intend ed only for the provid er named. Any use or distri bution by any person other than this provid er is strict ly prohib ited. If you receiv e this report in error, please notify us maria antonia masterson at and return the origin al report to us at the addres s above. Thank- you. [facility] [address], [place], [address] 05/20/2024 16:09:18 Result Notes None recorded. Problems Name Status Onset Date Resolution Date Notes Provider Name and Address Organization Details Recorded Time Chronic diarrhea Active [address], [facility] [address], [facility] 04/03/2024 11:34:32 Abnormal weight loss Active [address], [facility] [address], [facility] 04/03/2024 11:35:11 Fatigue Active [address], [facility] [address], [facility] 04/03/2024 11:35:26 Mass of colon Active [address], [facility] [address], [facility] 05/06/2024 12:39:41 Problem Notes None recorded. Procedures Surgical History Date Name Laterality Status Provider Name and Address Organization Details Recorded Time 4 Colonoscopy completed Lucila Amaya RN [facility], [facility] 05/07/2024 14:42:05 hernia repair completed CASIE WHITAKER MA null, [facility] 04/03/2024 11:05:06 Imaging Results None recorded. [...] and Address Organization Details Last Updated DateTime 163.32 cm 16.8 kg/m2 48723.9 3 g 97 % 97 % 97 /min 116 mm[Hg] 74 mm[Hg] CASIE WHITAKER MA [facility] 11:08:06 Social History Question Answer Notes LastModified by Organizat ion Details LastModified Time Tobacco Smoking Status Former Smoker CASIE WHITAKER MA null, [facility] 04/03/2024 11:04:46 Would You Say That, In General, Your Health Is Fair [email or web address] Information not available 04/03/2024 How Often Does Anyone, Including Family, Physically Hurt You? Never [email or web address] Information not available 04/03/2024 How Often Does Anyone, Including Family, Insult Or Talk Down To You? Never [email or web address] Information no t available 04/03/2024 How Often Does Anyone, Including Family, Threaten You With Harm? Never Information not available 04/03/2024 How Often Does Anyone, Including Family, Scream Or Curse At You? Never [email or web address] Information not available 04/03/2024 Within The Past 12 Months, You Worried That Your Food Would Run Out Before You Got Money To Buy More. Never True [email or web address] Information n ot available 04/03/2024 Within The Past 12 Months, The Food You Bought Just Didn't Last And You Didn't Have Money To Get More. Never True [email or web address] Information not available 04/03/2024 How Hard Is It For You To Pay For The Very Basics Like Food, Housing, Medical Care, And Heating? Would You Say It Is: Not Hard At All [email or web address] Information not available 04/03/2024 In The Past 12 Months, Has Lack Of Reliable Transportation Kept You From Medical Appointments, Meetings, Work Or From Getting Things Needed For Daily Living? No [email or web address] Information not available 04/03/2024 What Is Your Housing Situation Today? I Have Housing. [email or web address] Information not available 04/03/2024 How Often In The Past Year Have You Used Marijuana (including Smoking, Vaping, Dabbing, Or Edibles)? Never [email or web address] Information not available 04/03/2024 How Often In The Past Year Have You Used Prescription Medications That Were Not Prescribed To You? Never [email or web address] Information not available 04/03/2024 How Often In The Past Year Have You Taken Your Own Prescription Medication More Than The Way It Was Prescribed Or For Different Reasons Than Its Intended Purpose? Never Information not available 04/03/2024 How Often In The Past Year Have You Used Other Drugs (for Example, Heroin, Cocaine, Meth, Salvia, Inhalants)? Never [email or web address] Information not available 04/03/2024 Date Of Most Recent SBINS 02/29/2024 [email or web address] Information not available 04/03/2024 Sex: Unknown Functional [...] Time Tdap 04/03/[address], [place], [address], [facility]. 04/03/2024 12:21:03 Past Encounters Encounter ID Performer Location Encounter Start Date Encounter Closed Date Diagnosis/Indication Diagnosis SNOMED-CT Code [id number] BOOM JACKSON [facility] [address] [place] [address] 04/03/2024 10:51:42 04/03/2024 12:07:08 Chronic diarrhea 842245877 Abnormal weight loss 267 437998 Fatigue 18571581 Screening for malignant neoplasm of breast 856469672 Active or passive immunization 293929187 Health Concerns Section Related Observation LastModified by Organization Detai ls LastModified Time None Recorded Concern Status LastModified by Organization Details LastModified Time None Recorded Payers Encounter Date Sequence Insurance Name Policy Number Policy Osman Covered Member ID Osman Member ID Guarantor Name 04/03/2024 2 [place]IC[place]: NATIONAL [employer] Bridget Graves [id number] Bridget Graves 04/03/2024 1 [facility] - MEDICARE ADVANTAGE (MEDICARE REPLACEMENT PPO) [id number] Bridget Graves [id number] Bridget Mims Ely Notes Date Note Type Note Provider [...] smear Retired - was a cook in retirement. But she used to go home and [...] has been this slim in the past NIURKA PANTOJA, SENIOR GAMEMASTER [address], [place], [address], [facility]. 04/03/2024 12:22:05 OBGyn Episode No OBEpisode recorded.
--- OUTSIDE RECORDS SUMMARY | 2024-05-24 00:56 | XMS_ITS | Encounter Summary ---
Author Organization [facility] Address [address] [place] [address] Care Team Providers Care Senior Ios Software Engineer Name Role Phone Vivian Park Primary Care Provider Encounter Details Date Type Department Care Team (Late st Contact Info) Description 04/26/2024 Lab Requisition [facility] Pathology & Laboratory Medicine - [address] [address] Charbel Chen MD [address] [place] [address], [address] [place] [address] Encounter for screening for malignant neoplasm of colon Social History Tobacco Use Types Packs/Day Years Used Date Smoking Tobacco: Never Assessed Sex and Gender Information Value Date Recorded Sex Assigned at Not on file Gender Identity Not on file Sexual Orientation Not on file documented as of this encounter Plan of Treatment Not on file documented as of this encounter Procedures Procedure Name Priority Date/Time Associated Diagnosis Comments SURGICAL PATHOLOGY Today 04/26/2024 10 :15 EDT Encounter for screening for malignant neoplasm of colon documented in this encounter Results * SURGICAL PATHOLOGY (04/26/2024 10:15 EDT) Note to Patient The following pathology results have been interpreted by your pathologist and may be available to you before your health provider has had the opportunity to review them. Please allow time for your provider to receive these results and explore management options, if applicable. 05/02/2024 16:36 EDT [facility] Final Diagnosis A. 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 - Deeper levels examined. - See comment. B. COLON, 25 CM, POLYP, BIOPSY: - Tubulovillous adenoma. - Stalk margin negative for lesion. - Sessile serrated adenoma. 05/02/2024 16:36 [facility] Diagnosis Comment Due to the superficial nature of the biopsy, underlying invasive carcinoma into the submucosa is not excluded. Clinical correlation is recommended. Technical Administrator slides of this case were reviewed at the gastrointestinal/[facility] intradepartmental consultation conference. (AMS, ABS) 05/02/2024 16:36 [facility] Attestation There was significant resident/fellow involvement in the diagnostic evaluation of this case. By the signature below, the attending physician certifies that they have personally conducted a gross and/or microscopic examination of the described specimens and rendered or confirmed the above diagnosis. 05/02/2024 16:36 [facility] at 1636 Clinical History Screening 05/02/2024 16:36 [facility] Gross Description A. Received [...] B4. Bibi Beth 04/27/2024 9:20 05/02/2024 16:36 [facility] Resident/Fell ow: James Ramesh DO 05/02/2024 16:36 [facility] Performing Lab [facility] 05/02/2024 16:36 [facility] Scanned Images 05/02/2024 16:36 [facility] Tissue COLON STRUCTURE / Unknown 04/26/2024 10:15 EDT 04/26/2024 17:55 EDT Tissue specimen (specimen) COLON STRUCTURE / Unknown 04/26/2024 10:15 EDT 04/26/2024 17:55 EDT Charbel Chen MD PATHOLOGY ORDERABLES [facility] [address] [place] [address] documented in this encounter Visit Diagnoses Diagnosis Encounter for screening for malignant neoplasm of colon Special screening for malignant neoplasms, colon documented in this encounter Care Teams Senior Ios Software Engineer Relationship Specialty Start Date End Date Vivian Park PA [address] [place] [address] PCP - General 09/18/15 documented as of this encounter
--- NOTE | 2024-05-24 08:57 | DI.CT_ITS ---
Exam(s) CT CHEST/ABD/PEL W EXAM: CT CHEST/ABD/PEL W CLINICAL HISTORY: ? metastatic colon ca, colon tumor, d49.0. TECHNIQUE: Imaging Protocol: Axial computed tomography images with coronal and sagittal reformatted images were created and reviewed CONTRAST MATERIAL: Intravenous: Omnipaque 350 Contrast volume:100 ml Oral: yes / COMPARISON: No exams were available for comparison FINDINGS: CHEST: Tracheobronchial tree: Patent. Pulmonary parenchyma: No consolidation or dominant measurable mass. Linear scarring versus atelectas is at both lower lobes. No pulmonary nodules. Pleura: No effusion or pneumothorax. Mediastinum: Within normal limits. No evidence of adenopathy. Aorta: ascending aorta measures 4 cm in diameter. No significant atherosclerotic changes. Pulmonary arteries: No visible emboli. Heart: Normal size. No pericardial effusion. Bones: Unremarkable for age. No lytic or blastic lesions.No compression fractures. Soft tissues: Unremarkable. ABDOMEN and PELVIS: Liver: Normal density. No measurable mass. Gallbladder and biliary tract: No evidence of stones or wall thickening. No biliary dilatation. Pancreas: Normal density, no abnormal calcifications or inflammatory process. Spleen: Normal. Kidneys: Normal size, contour and axis. No radiodense stones. No obstructive uropathy. No suspicious masses seen. Adrenal glands: No masses seen. Aorta: Abdominal portion non-dilated. Lymph nodes: Are few small but abnormally enlarged mesenteric lymph nodes, measuring on the order of 8 millimeters.. Soft tissues: Unremarkable. Bladder: Nearly empty Bowel: 9 centimeter mass centered in the mid transverse colon causing significant obstruction with ma rked dilatation of the transverse colon proximal to the mass to 15 cm. Distal small bowel is also si gnificantly dilated to 4.8 cm. Peritoneal cavity: No ascites. No focal collection. No mesenteric inflammatory response. No free ai r. Bones: Unremarkable for age. No lytic or blastic lesions. Reproductive organs: Status post hysterectomy. IMPRESSION: 9 centimeter mass in mid transverse colon causing significant obstruction with dilatation of the colo n to 15 cm. Abnormal dilatation of distal small bowel. Small adjacent mesenteric lymph nodes. No e vidence of liver metastases. No evidence of metastatic disease in the chest. RADIATION DOSE DELIVERED: 989.45mGy.cm Total DLP DATA REPOSITORY: All CT scans at this facility are submitted to the National Radiology Data Registry (NRDR) Dose Index Registry (DIR) with the [employer] (ACR). RADIATION OPTIMIZATION: All CT scans at this facility use at least one of these dose optimization te chniques: automated exposure control; mA and/or kV adjustment per patient size (includes targeted exa ms where dose is matched to clinical indication); or iterative reconstruction.
[2024-05-24] MEDS: Barium Sulfate 2% W/V-Berry Smoothie 450 ML BTL PO ×2 (10:18→10:19)
[2024-05-24] MEDS: Normal Saline - Diluent 50 ML VIAL IJ (12:33)
[2024-05-24] MEDS: Omnipaque 350 MG/ML 500 ML BTL-Imaging package 100 ML IJ (12:34)
== END ==
PROVIDERS: PCP Nurse Practitioner Family; Visit Provider Surgery
DX: D49.0 Neoplasm of unspecified behavior of digestive system (principal)
CPT/HCPCS: 74177; 71260

== ENCOUNTER 2024-05-29 09:34 | Inpatient (IN) | payer MEDICARE, SELFPAY ==
[2024-05-29] VITALS (22 sets, daily range): BP systolic 94–158; BP diastolic 72–93; PULSE 77–88; RESP 11–31; TEMP 36.4–37.1; O2SAT 93–99; BMI 18.0
--- NOTE | 2024-05-29 08:47 | W.ANESPRE ---
General Info Date of Service Date Performed: 05/29/24 Height: 5 ft 2 in Weight: 44.7 kg Body Mass Index (BMI): 18.0 Surgical Procedure: Operation Date: 05/29/24 11:05 Proposed Procedure Side Surgeon p Hemicolectomy Right Charbel Chen MD Meds Allergies and Home Medications Allergies Allergy/AdvReac Type Severity Reaction Status Date / Time No Known Allergies Allergy Verified 05/29/24 10:04 Home Medication ?Medication ?Instructions ?Recorded Unknown [No Known Home Meds] 05/07/24 Current Visit Medications: Current Medications Generic Name Dose Route Start Last Admin Trade Name Freq PRN Reason Stop Dose Admin Acetaminophen 1,000 mg 05/29/24 06:00 Acetaminophen 500 Mg Tab PO 05/29/24 16:00 PREOP BRANDON Celecoxib 200 mg 05/29/24 06:00 Celecoxib 200 Mg Cap PO 05/29/24 16:00 PREOP BRANDON Gabapentin 600 mg 05/29/24 06:00 Gabapentin 300 Mg Cap PO 05/29/24 16:00 PREOP BRANDON Ringer's Solution 1,000 mls @ 80 mls/hr 05/29/24 06:00 IV 06/27/24 23:59 INFUSION BRANDON Cefazolin Sodium/Dextrose 2 gm in 50 mls @ 100 mls/hr 05/29/24 06:00 Ancef Duplex IVPB 05/29/24 16:00 PREOP BRANDON IV Miscellaneous Supplies 1 each 05/29/24 06:00 Iv Access IV 06/27/24 23:59 DIRECTED BRANDON Sodium Chloride 0 ml 05/29/24 06:00 Normal Saline Flush 10 Ml Syr IV 06/27/24 23:59 PRN PRN Sodium Chloride 0 ml 05/29/24 06:00 Normal Saline 10 Ml Vial IJ 06/27/24 23:59 DIRECTED PRN Sterile Water 0 ml 05/29/24 06:00 Water,Injection,Sterile 10 Ml Vial IJ 06/27/24 23:59 DIRECTED PRN PFSH Active Problems Active Problems: Problem Status Onset Code Colon tumor Acute D49.0 Encounter for screening colonoscopy Acute Z12.11 Medical History Medical History Chronic diarrhea Abnormal weight loss Fatigue Surgical History Surgical History Hx of appendectomy Hx of hysterectomy History of colonoscopy (~04/2024) H/O hernia repair Tobacco Smoking/Tobacco Use Status: Former Tobacco Use Alcohol Alcohol Intake: former Substance Use Substance use type: does not use Vital Signs and Lab Results Lab Results Blood Type / Crossmatch: Antibody Screen Pending 05/29/24 Complete Blood Count: No Data to Display Complete Metabolic Panel: No Data to Display Liver Function Panel: No Data to Display Coagulation Panel: No Data to Display Cardiac Panel: No Data to Display Arterial Blood Gas: No Data to Display Venous Blood Gas: No Data to Display Pancreas Panel: No Data to Display Thyroid Panel: No Data to Display Infectious Disease: No Data to Display Blood Cultures: No Data to Display Toxicology Panel: No Data to Display Anesthesia Assessment and Plan Anesthesia History Personal History: No History of Anesthesia Complications Family History: No Family History of Anesthesia Complications Exercise Tolerance Exercise Tolerance: Metabolic Equivalents>4 Pertinent Negatives Pertinent Negatives: No Symptoms of GERD, No Major Cardiovascular Symptoms or Complaints, No Major Pulmonary Symptoms or Complaints and No History of CVA/TIA Cardiac & Pulmonary Exam Cardiac Exam: Normal S1/S2 Heart Sounds Pulmonary Exam: Clear Bilateral Breath Sounds Implantable Cardiac Device Does patient have a Pacemaker or an ICD?: No Airway Exam Known Difficult Airway: No Mallampati Class: 2 Mouth Opening: Normal (> 3cm) Thyromental Distance: Greater than 3 cm Neck Range of Motion: Full ROM Neck Circumference: Normal Teeth Condition: Removable Dentures/Plates Upper and Removable Dentures/Plates Lower (partial) ASA Classification ASA Score: ASA 2 Emergency Case?: No NPO Status NPO Status: NPO Clears >2 hours, Solids >8 hours Anesthesia Plan Resuscitation Status: Full Code Anesthesia Technique: General Anesthesia Airway Planned: Endotracheal Tube Monitors Used: Standard Monitors
[2024-05-29] MEDS: Lactated Ringers 1,000 ML 80 ML IV (10:22)
[2024-05-29] MEDS: Celecoxib 200 MG CAP PO (10:24)
[2024-05-29] MEDS: Gabapentin 300 MG CAP 600 MG PO (10:25)
[2024-05-29] MEDS: Acetaminophen 500 MG TAB 1000 MG PO (10:25)
[2024-05-29] MEDS: ceFAZolin 2 GM/50 ML BAG IVPB (11:23)
[2024-05-29] MEDS: Bupivacaine 0.25% Pres-Free 30 ML VIAL (11:33)
[2024-05-29] MEDS: Bupivacaine LIPOSOME/PF 133 MG/10 ML VIAL IJ (11:33)
--- NOTE | 2024-05-29 12:35 | BOWEL_PTH ---
PATIENT: Bridget Graves LOC: U#:[id number] AGE/SX: 68/F ROOM: [id number] RE05/29/[address]: Charbel Chen MD : 1955 BED: A DIS: 06/03/2024 SPEC #: [id number] RECD: 05/29/24 18:33 STATUS: CAROLYN REQ #: [id number] ROLANDO: 05/29/24 12:[address]: Charbel Chen DEPT: Surgical Specimen RECD BY: Susan Longo ENTERED: 05/29/24 18:34 SP TYPE: Bowel OTHR DR: Rylan Norman Tissues: 1 - BOWEL RESECTION(OTHER) Procedures: IMMUNOPEROXIDASE STAIN GROSS AND MICRO LEVEL 6 Comments: [id number]
[2024-05-29] MEDS: fentaNYL 100 MCG/2 ML VIAL IVP ×3 (13:40→14:00)
--- NOTE | 2024-05-29 13:40 | ROE_ITS ---
Date of service: 05/29/24 Time of Service: 13:40 Operative Note Operative Note DATE OF PROCEDURE: 05/29/24 PRE-OP DIAGNOSIS: Colon cancer POST-OP DIAGNOSIS: same PROCEDURE: Open right hemicolectomy with primary ileocolic anastomosis SURGEON: Charbel Chen ROD TAPE OPERATOR: Nishi Bose ANESTHESIA TYPE: Local By Surgeon, General LMA/ETT and Other (Open bilateral tap blocks) Refer to Anesthesia Record ESTIMATED BLOOD LOSS: 150 PATHOLOGY: other (Ascending colon) COMPLICATIONS: None Patient was transported to: PACU Patient's condition: stable Indications: Bridget is a 68-year-old female with partial colon obstruction from a biopsy-proven colon cancer. Findings: Dilated ileum, as well as massively dilated ascending colon with a large tumor in the mid transverse colon Procedure Description: I met Bridget in the preoperative area, and reviewed the recent CT scan findings, and the plan for hemicolectomy. I explained that given the significant distention of the colon, as well as the overall size of the tumor, I do not think a laparoscopic approach makes any sense here. I explained how the conduct of a open operation is largely the same as a laparoscopic approach, and we reviewed the risks and benefits of surgery once again. She provided informed consent, we moved over to the operating room where she was assisted to the OR table. Care was taken to pad and support her appropriately. General endotracheal anesthesia was induced. We prepped and draped the anterior abdominal wall in the usual fashion. I made a midline longitudinal incision and dissected down to the fascia which was opened along the length of the incision. Once we had adequate exposure of the peritoneal cavity, I performed bilateral tap blocks by way of the open approach on both the right and left side. This was done with local anesthetic mixed with Exparel. Next, I turned my attention to identification of the tumor. The transverse colon was massively dilated up to a large palpable tumor just slightly to the left of the middle colic vessels. There was an adhesion of greater omentum down onto the pelvis which was divided with the LigaSure device. Once this was divided, I could reflect the transverse colon cephalad. The distention of the transverse colon extended back through the ascending colon, and into the distal small bowel. Although this tumor was located in the mid transverse colon, I felt that the ascending colon was dilated enough that it would not really provide any suitable anastomosis. And therefore it would be included in the specimen, and the conduct of the operation in order to stage the cancer appropriately would be best served with a extended right hemicolectomy. Therefore, I began mobilizing the distal small intestine and the cecum. As we dissected up the right anterior abdominal sidewall, mobilization of the colon was quite difficult because of the distention of it. Therefore, I went back to the mid transverse colon, just proximal to the tumor site in an area that appeared to be healthy and normal tissue. I placed a pursestring type suture here then made a colotomy. The colon was decompressed with a sump type suction. Suction was removed, and the pursestring suture was closed. This allowed more easy manipulation of the colon. I dissected all of the lateral attachments, and came up around the hepatic flexure. Once this dissection was complete, I identified an area of the distal transverse colon that appeared to be suitable for anastomosis. Great care was taken to ensure that we had well- vascularized tissue here, and I believe that we were able to safely preserve a left branch off of the middle colic artery. Defect was made in the transverse colon mesentery, and the distal transverse colon was divided with a JR stapler using a purple load. The mesentery was then divided with sequential fires of the LigaSure device back to the middle colic artery proper. The pedicle was dissected on each side, and a Aurora clamp was used to formally control the vessels. With the clamp in place, the distal portion of the vessels was sealed and divided with the LigaSure. High ligation was performed here, and the dissection continued down around the mesentery of the ascending colon. The ileocolic pedicle was also taken high. This was divided with the LigaSure. The dissection continued down onto the terminal ileum, and with the mesentery completely and divided, the JR stapler was used to divide a portion of the terminal ileum it would be suitable for the a ferret portion of the anastomosis. With the specimen completely , it was passed off the field and labeled as the ascending colon. I then suture-ligated the middle colic pedicle and remove the Aurora clamp. Surgical site was all hemostatic. It was irrigated. We then turned our attention to creation of the anastomosis. Several orientations were attempted, but it appeared that a [id number] antiperistaltic ileocolic orientation was most favorable. Antimesenteric border was aligned with the free tenia on the distal transverse colon. These limbs were pexied in place with suture. I created a colotomy on the free tenia, and an enterotomy on the antimesenteric side of the small intestine. The anastomosis was created with a single fire of an 80 mm JR purple staple load. Internal staple line appeared hemostatic. The common ileal colotomy was then closed with a running 3-0 PDS suture, and imbricated with interrupted 2-0 Vicryl stitches. The anastomosis appeared widely patent, and there were no signs of bleeding. It sat nicely, with no tension across the anastomosis. Tissue was all pink, viable, and seems very well-perfused. The field was gently irrigated. The anastomosis created, we changed our gloves, and took great care to arrange the orientation of the small bowel in as normal and anatomic position as possible. The abdomen and pelvis were then irrigated. Surgical site was examined 1 last time, and all of the divided tissues appeared hemostatic. Fascia was then closed with running 2-0 PDS sutures. The skin and soft tissues were irrigated, and surgical stapler was used to close the skin level. A kunal negative pressure dressing was applied. Patient was then allowed awaken from anesthesia and transferred to the recovery unit.
[2024-05-29] MEDS: Normal Saline 10 ML VIAL IJ (14:10)
[2024-05-29] MEDS: HYDROmorphone 2 MG/ML SYR IVP (14:10)
--- NOTE | 2024-05-29 14:27 | W.ANESPOSTOP ---
Postoperative Evaluation Date, Time and Location Date Performed: 05/29/24 Time Performed: 14:27 Patient Location: PACU Vital Signs Most Recent Imported Vital Signs: Most Recent Vital Signs Temp Pulse Resp BP Pulse Ox 36.6 C 82 22 158/83 H 95 05/29/24 14:15 05/29/24 14:20 05/29/24 14:22 05/29/24 14:20 05/29/24 14:22 Pain Score Most Recent Pain Score: Most Recent Pain Score Pain Level 5 05/29/24 14:15 Assessment Mental Status: Arousable with meaningful communication Airway and Respiratory Function: Patent airway with normal (patient baseline) respiratory exam Cardiovascular Function: Hemodynamically Stable Hydration Status: Adequately Hydrated Nausea & Vomiting: No Nausea or Vomiting Pain: Pain is Moderate or Severe Postoperative Pain Management: Ongoing pain, patient will be managed as an inpatient Peripheral Nerve Block: Patient did not receive a nerve block
[2024-05-29] MEDS: Enoxaparin 40 MG/0.4 ML SYR SC (16:01)
[2024-05-29] MEDS: HYDROmorphone 2 MG/ML SYR 0.5 MG IVP (16:02)
[2024-05-29] MEDS: ACETAMINOPHEN 1,000 MG/100 ML BTL 400 MG IVPB (18:47)
[2024-05-29] MEDS: Normal Saline Flush 10 ML SYR IVP (20:05)
[2024-05-29] MEDS: traMADol 50 MG TAB PO (21:45)
[2024-05-30 00:01] VITALS: BP 100/57; PULSE 90; RESP 18; TEMP 36.4; O2SAT 96
[2024-05-30] MEDS: ACETAMINOPHEN 1,000 MG/100 ML BTL 400 MG IVPB ×3 (02:38→17:43)
[2024-05-30 02:48] VITALS: BP 112/70; PULSE 80; RESP 18; TEMP 36.3; O2SAT 95
[2024-05-30 07:22] LABS: Abs Immature Grans 0.14 10^3/uL (0.0-0.06); Absolute Basophil Count 0.06 10^3/uL (0.0-0.2); Absolute Monocyte Count 0.94 10^3/uL (0.1-0.8); Basophils % 0.4 %; Eosinophils % 0.1 %; HCT 35.6 % (36.0-46.0); HGB 11.5 g/dL (11.2-15.7); Immature Grans % 0.9 %; Lymphocytes % 14.1 %; MCH 27.5 pg (27.0-33.0); MCHC 32.3 % (32.0-36.0); MCV 85 fL (80-95); MPV 8.3 fL (8.0-11.0); Monocytes % 6.3 %; Neutrophils % 78.2 %; RBC 4.18 10^6/uL (3.93-5.22); RDW 15.2 % (11.7-14.6); RDW-SD 47.4 fL; WBC 14.86 10^3/uL (4.4-10.8)
[2024-05-30 07:26] LABS: Absolute Eosinophil Count 0.01 10^3/uL (0.0-0.7); Absolute Neutrophil Count 11.62 10^3/uL (1.2-6.7)
[2024-05-30 07:39] LABS: Anion Gap 7.2 mmol/L (3-11); BUN 12 mg/dL (7-18); CO2 26.8 mmol/L (21.0-32.0); CREATININE 0.6 mg/dL (0.55-1.02); Calcium 8.6 mg/dL (8.5-10.1); Chloride 102 mmol/L (98-107); Estimated GFR 98.93 (mL/min/1.73m2); Glucose 116 mg/dL (74-106); Sodium 136 mmol/L (136-145)
--- NOTE | 2024-05-30 07:39 | W.PM.PROGNOT ---
Date of Service Date of service: 05/30/24 Time of Service: 07:40 Assessment and Plan Assessment and plan (1) Colon tumor: Status: Acute Assessment and plan: POD #1 s/p open right hemicolectomy with primary ileocolic anastomosis Pain is currently well controlled. Post-op diet ordered, advance as tolerated Encouraged activity OOB, ambulation and sitting in the chair Continue pulmonary toilet SERG dressing in place over midline incision. P// Ensure continued pain control, activity as tolerated and to assess tolerance of diet. Subjective Subjective Interval history since last seen: Bridget reports her pain has been very well controlled over night. She states she does not have any pain, except for when she takes a deep breath. She describes consuming some toast and coffee without any nausea or vomiting. She is urinating without difficulty. Exam Const General: cooperative, healthy appearing and comfortable Orientation: alert and oriented x3 Resp Effort & Inspection: normal respiratory effort, no audible wheezes and no cough GI Inspection: normal to inspection Palpation: soft, no guarding and tender (generalized with palpation. ) Other: SERG dressing is in place over midline incision. Objective Last Vital Signs Temp 36.3 C L 05/30/24 02:48 Pulse 80 05/30/24 02:48 Resp 18 05/30/24 02:48 BP 112/70 05/30/24 02:48 Pulse Ox 95 05/30/24 02:48 Laboratory Results - last 24 hr 05/29/24 05/30/24 10:09 06:30 Sodium 136 Potassium 4.0 Chloride 102 Carbon Dioxide 26.8 Anion Gap 7.2 BUN 12 Creatinine 0.6 Est GFR (CKD-EPI 2020) 98.93 Glucose 116 H Calcium 8.6 ABO/Rh O Positive Antibody Screen NEGATIVE Time Spent with Patient Time Spent with Patient: <25 minutes Time was spent: preparing to see the patient(eg.review tests), obtaining and/or reviewing separately otained hiistory and counseling the patient
[2024-05-30 08:00] VITALS: BP 114/80; PULSE 84; RESP 20; TEMP 37.3; O2SAT 95
[2024-05-30] MEDS: traMADol 50 MG TAB PO ×3 (08:00→20:08)
[2024-05-30 08:04] LABS: Platelet Count 710 10^3/uL (130-400)
[2024-05-30 08:05] LABS: Diff Comment Diff Reviewed; RBC Morphology Normal
[2024-05-30] MEDS: Psyllium PKT 1 EACH PO (08:15)
[2024-05-30] MEDS: Normal Saline Flush 10 ML SYR IVP ×3 (08:15→20:20)
[2024-05-30] MEDS: Simethicone 80 MG CHEW PO (09:08)
[2024-05-30] MEDS: HYDROmorphone 2 MG/ML SYR 0.5 MG IVP ×2 (09:08→15:09)
--- NOTE | 2024-05-30 10:47 | PDOC.CMIN ---
Date of service: 05/30/24 Time of Service: 10:47 Care Management Initial Assmt Initial Assessment Reason for Hospitalization: Colon Cancer: Open right hemicolectomy with primary ileocolic anastomosis Functional Status/Living Situation Patient Presentation: SERG drain in place, diet being advanced. Bridget is up ambulating independently each hour. She continues to experience breakthrough pain; which is being closely monitored and treated. CM following. Town of Residence: [place] Significant Other/Family: Local Natural Supports: Sister Mercedez Instrumental Activities of Daily Living (ADLs): Independent Medications Medication Management: No Issues/Barriers identified Advance Directives Advance Directives: Do you have an Advance Directive: AD On File at [facility]: N 05/07/24 13:20 Date Asked 05/29/24 05/29/24 07:37 AD Date Reviewed COLST On File at [facility] COLST Date Scanned Code Status Resuscitation Status Full Code Portal Pt does not currently have a portal and education provided: Yes Insurance Coverage/Financial Issues Insurance: MVP Care Team Visit Care Team Role Provider Type Niurka Norman Primary Care Provider NURSE PRACTITIONER InPatient Harjit Ramirez Other Providers OTHER Charbel Chen MD Admit Provider [facility] STAFF PHYSICIAN Attending Provider Discharge Potential Discharge Needs: Consult (Wound Care), PT Evaluation, PCP F/U Appt and Surgical F/U Appt Anticipated Barriers to Discharge: None Identified Patient/Family Education Needs: Review discharge instructions, discuss Ask Me Three Transportation: Private vehicle Plan: Anticipate Bridget will return home when ready per MD. PT has cleared Bridget to return home with no services; undetermined if VNA or O/P wound support will be recommended, CM following. PFSH All Active Problems (Updated 06/04/24 @ 00:08 by JOCELINE PRESTON) Protein-calorie malnutrition, moderate (Acute) Acute on chronic blood loss anemia (Acute) Fatty pancreas (Acute) Atherosclerosis of arteries (Acute) Aortic atherosclerosis (Acute) Coronary artery calcification seen on CAT scan (Acute) POWERS (nonalcoholic steatohepatitis) (Acute) Cancer cachexia (Acute) Underweight due to inadequate caloric intake (Acute) Low serum albumin (Acute) Atelectasis of both lungs (Acute) Medical History Encounter for screening colonoscopy Chronic diarrhea Abnormal weight loss Fatigue Surgical History History of hemicolectomy (~05/2024) Hx of appendectomy Hx of hysterectomy History of colonoscopy (~04/2024) H/O hernia repair Social History Smoking/Tobacco Use Status: Former Tobacco Use Quit Date: 11/13/17 Smoking risk assessment performed?: Yes Alcohol Intake: former Substance use type: does not use Housing: house Do you feel safe at home: Yes Do you feel safe in your relationship?: Yes SDOH(Care Management) Screening Will the Patient Participate in the Screening?: Declined to provide Do you worry about having a steady place to live?: choose not to answer Problems where you live: no known problems In the past 12 months, have you had to go without electric, gas, oil or water in your home?: no Have you or anyone in your house had to go without enough food to eat?: no Has lack of transportation kept you from medical appointments or from doing things needed for daily living?: no Has anyone in your support network made you feel unsafe for any reason?: no
--- NOTE | 2024-05-30 14:29 | CHAPLAIN ---
I had a brief visit with Bridget. She was sitting up in bed. I explained my role and offered support. Bridget was working on her iPad. I'll continue to visit.
--- NOTE | 2024-05-30 14:50 | IN_ITS ---
PT Notes Visit Reasons: Colon Cancer Physical Therapy Inpatient Initial Evaluation Date: 05/30/2024 Referring Doctor: Jere Chen MD PT Orders: PT CONSULT: Limited ability. Deconditioned and malnourished. Laparotomy for colon cancer Precautions: Fall. Standard. Activity as tolerated. Patient Profile/Admitting Diagnosis: Bridget is a 68-year-old female diagnosed with colon cancer with intramural neoplasm with high-grade dysplasia and is status post right hemicolectomy with primary ileocolic anastomosis on postoperative day 1. PMHX: All Active Problems (Updated 04/26/24 @ 10:38 by Charbel Chen MD) Colon tumor (Acute) Encounter for screening colonoscopy (Acute) Medical History (Updated 04/26/24 @ 10:38 by Charbel Chen MD) Chronic diarrhea Abnormal weight loss Fatigue Surgical History (Updated 04/29/24 @ 07:55 by Belen Graves) History of colonoscopy (~04/2024) H/O hernia repair Social History/Home Situation: Lives with sister and [id number] in a private home. She has her own apartment. Has a ramp to enter. Watches over sister's dog during the day. Equipment Owned/DME: None Subjective: Willing to walk again with PT even after having just walked with nurse around nurse's station loop. Objective: General Observation: No lines. Mental Status: Alert and oriented as to person, place, time, and purpose. Able to pay attention, focus, and respond appropriately. Pain: None reported Vital Signs: Closely monitored by nursing staff ROM: Right Upper Extremity: Shoulder Flexion WFL. Shoulder abduction WFL. Elbow flexion WFL. Wrist flexion WFL. Functional opening and closing of hand WFL. Left Upper Extremity: Shoulder Flexion WFL. Shoulder abduction WFL. Elbow flexion WFL. Wrist flexion WFL. Functional opening and closing of hand WFL. Right Lower Extremity: Hip flexion WFL. Hip abduction WFL. Knee flexion WFL. Ankle dorsiflexion WFL. Ankle plantarflexion WFL. Left Lower Extremity: Hip flexion WFL. Hip abduction WFL. Knee flexion WFL. Ankle dorsiflexion WFL. Ankle plantarflexion WFL. Strength: Right Upper Extremity: Shoulder flexors 5/5. Shoulder abductors 5/5. Elbow flexors 5/5. Elbow extensors 5/5. Machines Technician strong. Left Upper Extremity: Shoulder flexors 5/5. Shoulder abductors 5/5. Elbow fl exors 5/5. Elbow extensors 5/5. Machines Technician strong. Right Lower Extremity: Hip flexors 4/5. Hip abductors 4/5. Knee flexors 5/5. Knee extensors 4/5. Ankle dorsiflexors 5/5. Ankle plantarflexors 5/5. Left Lower Extremity: Hip flexors 4/5. Hip abductors 4/5. Knee flexors 5/5. Knee extensors 4/5. Ankle dorsiflexors 5/5. Ankle plantarflexors 5/5. Bed Mobility/Transfers: Supine to sit independent Sit to supine independent Sit to stand independent Stand to sit independent Bed to reclining chair independent Reclining chair to bed independent Gait: 600 feet with no assistive device. No SOB. No loss of balance. No path deviation. Supervision only because of postoperative status. Balance: Static Sitting: Normal Dynamic Sitting: Normal Static Standing: Normal Dynamic Standing: Good Special Tests: Mobility Limitations Standardized Measure [facility] 6 clicks Basic Mobility Inpatient Short Form: Raw Score: 24 CMS Score: 0% deficit Informed Consent/Education: Patient was instructed in purpose of PT consult. Assessment: Patient only needs supervision from nursing staff due to postoperative status. No physical assistance needed. No assistive device needed. Patient is assessed as a low complexity based on the following: History: 68-year-old female with past medical history as indicated above Examination: As above Presentation: Stable Decision Makin low complexity Goals: N/A. PT evaluation only. Plan of Care/Treatment Plan: N/A. PT evaluation only. DISCHARGE RECOMMENDATIONS: [X] Home with no services. No skilled services needed at this time. May walk with nursing staff 3-5x a day while on admission. No assistive device needed. [] Home with services [specify] [] Home with outpatient PT [] [] SNF for continued rehabilitation [] [] [facility] [] [] SNF versus LTC based on ability to participate and progress [] TREATMENT CODE/TIME: 15729 x 15 minutes for 1 unit (14:50-15:05). Thank you for the opportunity to participate in the care of this patient. Cindi Enamorado PT, DPT, CLT [facility] [place], [place]
--- NOTE | 2024-05-30 15:22 | NUR.NOTE ---
Patient is day 1 post op. Abdominal incision with kunal drain. She has slowly started to advance her diet. Pain increases post meal, denies nausea. Patient is ambulating hourly. She does a full loop of the unit. Pain described as tightness and cramping. Patient educated on pain management, the benefits of pain control for taking deep breaths, moving positions, and ambulating. Patient had been reluctant and gaurding her abd, facial grimacing, pain rated 7/10 prior to IV dose.
[2024-05-30 16:07] VITALS: BP 102/73; PULSE 79; RESP 16; TEMP 37; O2SAT 97
[2024-05-30] MEDS: Enoxaparin 40 MG/0.4 ML SYR SC (16:21)
[2024-05-30 20:16] VITALS: BP 107/71; PULSE 77; RESP 18; TEMP 36.7; O2SAT 97
[2024-05-31 01:37] VITALS: BP 118/88; PULSE 84; RESP 16; TEMP 35.7; O2SAT 97
[2024-05-31] MEDS: HYDROmorphone 2 MG/ML SYR 0.5 MG IVP (01:39)
[2024-05-31] MEDS: Simethicone 80 MG CHEW PO ×2 (01:39→19:50)
[2024-05-31] MEDS: Normal Saline Flush 10 ML SYR IVP ×3 (01:39→20:00)
[2024-05-31] MEDS: ACETAMINOPHEN 1,000 MG/100 ML BTL 400 MG IVPB ×2 (02:24→09:50)
[2024-05-31 07:52] VITALS: BP 107/71; PULSE 73; RESP 14; TEMP 36.3; O2SAT 98
--- NOTE | 2024-05-31 08:23 | W.PM.PROGNOT ---
Date of Service Date of service: 05/31/24 Time of Service: 08:23 Assessment and Plan Assessment and plan (1) Colon tumor: Status: Acute Assessment and plan: POD#2 lap R neela no BM tolerating po's up walking dvt- lovenox d/c once she has a BM (2) Abnormal weight loss: (3) Chronic diarrhea: (4) Fatigue: Subjective Subjective Interval history since last seen: Pt is doing well. no headaches. No CP or SOB. no productive cough. no dysuria. no leg pain or swelling. Pt has been up walking. No BM yet Exam Narrative Exam Narrative: PHYSICAL EXAM GENERAL APPEARANCE: Alert, healthy appearance, oriented, x 3,? in no acute distress HYDRATION: Well hydrated HEAD, EYES, EARS, NECK, THROAT: Head is normocephalic, pupils equal, round, reactive to light and accommodation, ocular movement intact, sclera clear and no jaundice. ?Dentition intact. LUNGS: normal respiration/normal chest excursion. ?Clear to auscultation bilaterally. ?No wheeze. ?HEART: Regular rate and rhythm. no murmurs EXTREMITY: No edema or cyanosis.? no leg pain, redness, swelling.? ABDOMEN: SERG dressing in place w/ minimal strike-through Objective Last Vital Signs Temp 36.3 C L 05/31/24 07:52 Pulse 73 05/31/24 07:52 Resp 14 05/31/24 07:52 BP 107/71 05/31/24 07:52 Pulse Ox 98 05/31/24 07:52 Time Spent with Patient Time Spent with Patient: 25-34 minutes Time was spent: preparing to see the patient(eg.review tests), obtaining and/or reviewing separately otained hiistory, ordering medications,tests, procedures, referring, communicating with other health school child care attendant, indepentently interpreting results, counseling the patient, care coordination and other
[2024-05-31] MEDS: Psyllium PKT 1 EACH PO (09:52)
[2024-05-31 15:08] VITALS: BP 124/79; PULSE 75; RESP 15; TEMP 36.9; O2SAT 99
[2024-05-31] MEDS: Enoxaparin 40 MG/0.4 ML SYR SC (15:46)
[2024-05-31] MEDS: traMADol 50 MG TAB PO ×2 (15:51→23:35)
--- NOTE | 2024-05-31 17:46 | PDOC.CMPRO ---
Date of service: 05/31/24 Time of Service: 17:46 Care Management Progress Note Progress Note Text Progress Note Text: Bridget was sitting up in bed when CM met with her. She stated that she is doing better, and that per MD, she is being monitored while waiting for her to have a BM, which is indicated prior to discharge. She stated that she is comfortable here, and is happy with her care. She is independent at baseline, and stated that she has good family support. CM will continue to follow. Discharge Potential Discharge Needs: Surgical F/U Appt Anticipated Barriers to Discharge: None Identified Patient/Family Education Needs: Review discharge instructions, discuss Ask Me Three Transportation: Private vehicle Plan: Anticipate Bridget will return home once medically cleared. Her family will transport her home via private vehicle. She will follow up with surgical services, her PCP and discharge plan of care. CM will continue to follow. SDOH(Care Management) Screening Will the Patient Participate in the Screening?: Declined to provide Do you worry about having a steady place to live?: choose not to answer Problems where you live: no known problems In the past 12 months, have you had to go without electric, gas, oil or water in your home?: no Have you or anyone in your house had to go without enough food to eat?: no Has lack of transportation kept you from medical appointments or from doing things needed for daily living?: no Has anyone in your support network made you feel unsafe for any reason?: no
[2024-05-31] MEDS: Acetaminophen 325 MG TAB 650 MG PO (19:50)
[2024-05-31 23:18] VITALS: BP 107/73; PULSE 96; RESP 15; TEMP 36.7; O2SAT 95
[2024-06-01 05:47] LABS: Abs Immature Grans 0.18 10^3/uL (0.0-0.06); Absolute Basophil Count 0.04 10^3/uL (0.0-0.2); Absolute Eosinophil Count 0.23 10^3/uL (0.0-0.7); Absolute Monocyte Count 0.85 10^3/uL (0.1-0.8); Absolute Neutrophil Count 11.09 10^3/uL (1.2-6.7); Basophils % 0.3 %; Eosinophils % 1.6 %; HCT 32.4 % (36.0-46.0); HGB 10.7 g/dL (11.2-15.7); Immature Grans % 1.3 %; Lymphocytes % 12.4 %; MCH 28.1 pg (27.0-33.0); MCV 85 fL (80-95); MPV 7.8 fL (8.0-11.0); Neutrophils % 78.4 %; Platelet Count 609 10^3/uL (130-400); RBC 3.81 10^6/uL (3.93-5.22); RDW 15.1 % (11.7-14.6); RDW-SD 46.3 fL; WBC 14.15 10^3/uL (4.4-10.8)
[2024-06-01 05:49] LABS: Absolute Lymphocyte Count 1.75 10^3/uL (1.2-3.4)
[2024-06-01] MEDS: Simethicone 80 MG CHEW PO ×4 (06:34→20:20)
[2024-06-01 07:54] VITALS: BP 112/80; PULSE 82; RESP 15; TEMP 36.8; O2SAT 97
[2024-06-01] MEDS: Psyllium PKT 1 EACH PO (09:23)
[2024-06-01] MEDS: Normal Saline Flush 10 ML SYR IVP ×3 (09:23→23:19)
--- NOTE | 2024-06-01 09:56 | PHA.REVIEW2 ---
Pharmacy Admission Review Admission Clinical Review Admission Pharmacy Review: Colon tumor (Acute) No Known Allergies Allergy (Verified 05/29/24 10:04) Resuscitation Status Full Code Height 5 ft 6 in Weight 44.4 kg Comments Comments/Follow Ups: Per progress note - plan for discharge after BM Pharmacy Admission Review Renal Dosing Renal Dosing: BUN 12 mg/dL (7-18) 05/30/24 06:30 Creatinine 0.6 mg/dL (0.55-1.02) 05/30/24 06:30 Medications needing adjustments: Reviewed (CrCl 38.76 mL/min) List of meds needing interventions: Current medications are okay Anticoagulation Anticoagulation: Hgb 10.7 g/dL (11.2-15.7) L 06/01/24 05:28 Hct 32.4 % (36.0-46.0) L 06/01/24 05:28 Plt Count 609 10^3/uL (130-400) H 06/01/24 05:28 Creatinine 0.6 mg/dL (0.55-1.02) 05/30/24 06:30 DVT Prophylaxis: Reviewed (Hgb decreased from 11.5 to 10.7) Medications: Enoxaparin (40mg daily) Opiate Usage Evaluate Pain Scale/Pains Meds: Reviewed (PRN hydromorphone - 4 doses given) Scheduled Bowel Reg ordered if on Opiates?: No Relevant Labs Relevant Labs: Sodium 136 mmol/L (136-145) 05/30/24 06:30 Potassium 4.0 mmol/L (3.5-5.1) 05/30/24 06:30 Chloride 102 mmol/L (98-107) 05/30/24 06:30 Electrolytes, C-Reactive P, ESR: Reviewed (WBC decreased slightly from 14.86 to 14.15) Cardiac Review BP, HR, EF%: Reviewed (BP and HR WNL) QTc Review QTc: Reviewed (No EKG on file) IV to PO Switch IV Medications: Reviewed (ondansetron and hydromorphone) Home Meds Home Med List reviewed: Reviewed Relevent Home Meds Not ordered & why?: No known home meds Current Meds Current Medication Order Review: Reviewed Comments Comments/Follow Ups: Per progress note - plan for discharge after BM
[2024-06-01] MEDS: Acetaminophen 325 MG TAB 650 MG PO (11:08)
--- NOTE | 2024-06-01 11:54 | W.PM.PROGNOT ---
Date of Service Date of service: 06/01/24 Time of Service: 11:54 Assessment and Plan Assessment and plan (1) Colon tumor: Status: Acute Assessment and plan: Postop day 3 for right hemicolectomy for colon cancer She is tolerating p.o.'s. She is up walking. No signs of DVT/pneumonia/UTI/wound infection She does need to have a bowel movement prior to discharge Continue supportive care We will try to little bit of a stool softer to see if we can promote bowel function We did discuss that her bowels will be abnormal-for the next 2 weeks. She may have some fecal urgency after eating. Her bowels may be loose for the next couple of days. She should have good control over her bowels. (2) Abnormal weight loss: Subjective Subjective Interval history since last seen: Pt is doing well. no headaches. No CP or SOB. no productive cough. no dysuria. no leg pain or swelling. Patient has still not had a bowel movement. She is passing a lot of gas. She is still able to eat. She feels bloated. She has been up walking. Exam Const Other: PHYSICAL EXAM GENERAL APPEARANCE: Alert, healthy appearance, oriented, x 3,? in no acute distress HYDRATION: Well hydrated HEAD, EYES, EARS, NECK, THROAT: Head is normocephalic, pupils equal, round, reactive to light and accommodation, ocular movement intact, sclera clear and no jaundice. ?Dentition intact. No sore throat.? No jaw pain. No thrush LUNGS: normal respiration/normal chest excursion. ?Clear to auscultation bilaterally. ?No wheeze. ?HEART: Regular rate and rhythm. no murmurs EXTREMITY: No edema or cyanosis.? no leg pain, redness, swelling.? ABDOMEN: Incision is dressed with the kunal with minimal strikethrough. She has good bowel sounds. She is mildly bloated and distended today. She has little more pain than yesterday but not peritonitis Objective Last Vital Signs Temp 36.8 C 06/01/24 07:54 Pulse 82 06/01/24 07:54 Resp 15 06/01/24 07:54 BP 112/80 06/01/24 07:54 Pulse Ox 97 06/01/24 07:54 Laboratory Results - last 24 hr 06/01/24 05:28 WBC 14.15 H RBC 3.81 L Hgb 10.7 L Hct 32.4 L MCV 85 MCH 28.1 MCHC 33.0 RDW 15.1 H Plt Count 609 H MPV 7.8 L Immature Gran % 1.3 Neutrophils % 78.4 Lymphocytes % 12.4 Monocytes % 6.0 Eosinophils % 1.6 Basophils % 0.3 Nucleated RBC % 0.0 Absolute Neutrophils 11.09 H Absolute Lymphocytes 1.75 Absolute Monocytes 0.85 H Absolute Eosinophils 0.23 Absolute Basophils 0.04 Time Spent with Patient Time Spent with Patient: 25-34 minutes Time was spent: preparing to see the patient(eg.review tests), obtaining and/or reviewing separately otained hiistory, ordering medications,tests, procedures, referring, communicating with other health director of healthcare systems, indepentently interpreting results, counseling the patient, care coordination and other
[2024-06-01] MEDS: Sennosides/Docusate Sodium TAB 1 TAB PO (12:54)
[2024-06-01 15:10] VITALS: BP 101/71; PULSE 89; RESP 15; TEMP 36.4; O2SAT 96
[2024-06-01] MEDS: Enoxaparin 40 MG/0.4 ML SYR SC (15:21)
[2024-06-01] MEDS: traMADol 50 MG TAB PO (15:24)
[2024-06-01] MEDS: HYDROmorphone 2 MG/ML SYR 0.5 MG IVP (21:30)
--- NOTE | 2024-06-01 21:45 | DI.CT_ITS ---
Exam(s) CT ABDOMEN PELVIS W EXAM: CT ABDOMEN PELVIS W CLINICAL HISTORY: increase abd pain. TECHNIQUE: Imaging Protocol: Axial computed tomography images with coronal and sagittal reformatted images were created and reviewed CONTRAST MATERIAL: Intravenous: Omnipaque-350 100cc Oral: None COMPARISON: CT CT CHEST/ABD/PEL W from 05/24/2024 FINDINGS: VISUALIZED LUNG BASES: Mild increased markings in both lung bases in this post laparotomy patient. N o large infiltrates nor significant pleural effusions. No pneumothorax. ABDOMEN: GI: There has been recent laparotomy with vertical midline skin clips in the abdomen and pelvis. There is abundant pneumoperitoneum which is probably related to postop laparotomy status. Stomach is not dilated. No hiatal hernia. The previously present large mass in the abdomen is no longer seen/has been resected and there is wesley stomosis now seen in this region. There does not appear to be an abnormal extra luminal collection i n this region. There is a small amount of free fluid in the dependent aspect of the pelvis. The bow el appears less dilated than on the previous CT scan study of 05/24/2024. However, there are still d ilated loops of bowel both proximal distal to the anastomosis which contain abundant fecal material a nd exhibit diameters up to 5 cm. There are also less dilated but somewhat edematous small bowel loop s, these exhibiting diameter up to 3 cm and wall thickness of 5 mm. There is no evidence of gas in the portal venous system. LIVER: There are no focal hepatic lesions evident. No dilated intrahepatic ducts. GALLBLADDER/BILIARY: No obvious gallbladder pathology. CBD is not dilated. PANCREAS: No evidence of pancreatic mass. Pancreatic duct diameter is upper normal. There is no johnie dence of pancreatitis. No peripancreatic fluid collections. SPLEEN: Spleen is not enlarged. No obvious intrasplenic lesions. Splenic and portal veins are paten t. ADRENALS: There are no significant adrenal masses. KIDNEYS:No cysts evident. No solid renal masses. No calculi nor hydronephrosis.. ABDOMINAL AORTA: Abdominal aorta is not enlarged. Retroaortic left renal vein noted, seen approximat iris 5 percent of the general population. Celiac and superior mesenteric arteries are patent. No johnie dence of intraluminal filling defects in the SMA to suggest embolization. The inferior mesenteric ar juan david is also opacified. IVC: The IVC is collapsed, indicating hypovolemia. The iliac veins in the pelvis are also collapsed. There is, however, suggestion of filling defect in the left external iliac vein-possible intralumin al thrombus, this seen on axial images 54-57 (axial series 5). LYMPH NODES:There is no retroperitoneal nor paraaortic adenopathy. ABDOMINAL WALL: Laparotomy skin clips. No acute hernias. PELVIS: GI: Appendix is not able to be identified.No evidence of sigmoid diverticulitis. LYMPH NODES: There is no intrapelvic nor inguinal adenopathy. REPRODUCTIVE: Uterus is surgically absent. No obvious adnexal masses. URINARY BLADDER: No calculi nor obvious masses evidentz OSSEOUS: No fractures and no significant osseous lesions. IMPRESSION: 1. Compared to 05/24/[address] scan reveals evidence of interval laparotomy with resection of t he previously described large mass with bowel anastomosis at this level. There is abundant pneumoper itoneum. This may just be related to the recent laparotomy. However, there is still significantly d ilated bowel loops in the abdomen pelvis, albeit less so than previous. No evidence of fluid nor abs cess in the immediate vicinity of the newly created anastomosis. There is small amount of free fluid in the dependent aspect of the pelvis. Close follow-up recommended. 2. There is concern for intraluminal thrombus within the left external iliac vein in the pelvis. Petros mmend ultrasound venous study of both lower extremities and if possible the iliac veins. As iliac vei ns are difficult to visualize on ultrasound, if the legs are negative for DVT then recommend double V ENOUS phase contrast infused CT scan to be performed both at portal venous timing and 1 minute later in an attempt to opacify the pelvic veins. 3. IVC and pelvic veins are collapsed, indicative of hypovolemia. First read by [facility] Final report and recommendations called by myself to Monday06/02/24 15:25 pm. RADIATION DOSE DELIVERED: Total DLP DATA REPOSITORY: All CT scans at this facility are submitted to the National Radiology Data Registry (NRDR) Dose Index Registry (DIR) with the [employer] (A[employer]). RADIATION OPTIMIZATION: All CT scans at this facility use at least one of these dose optimization te chniques: automated exposure control; mA and/or kV adjustment per patient size (includes targeted exa ms where dose is matched to clinical indication); or iterative reconstruction.
[2024-06-01 22:14] LABS: HCT 31.3 % (36.0-46.0); HGB 10.3 g/dL (11.2-15.7); MCH 27.9 pg (27.0-33.0); MCHC 32.9 % (32.0-36.0); MCV 85 fL (80-95); MPV 7.7 fL (8.0-11.0); Platelet Count 603 10^3/uL (130-400); RBC 3.69 10^6/uL (3.93-5.22); RDW 14.9 % (11.7-14.6); RDW-SD 46.3 fL; WBC 19.23 10^3/uL (4.4-10.8)
[2024-06-01 22:17] VITALS: BP 111/80; PULSE 120; RESP 15; TEMP 37.2; O2SAT 96
[2024-06-01] MEDS: Normal Saline - Diluent 50 ML VIAL IJ (22:26)
[2024-06-01] MEDS: Omnipaque 350 MG/ML 100 ML BTL IJ (22:27)
--- NOTE | 2024-06-01 22:52 | NUR.NOTE ---
Nursing Note: Upon initial assessment at start of shift, pt reported increased gas pain. PRN simethicone administered with no effect per patient. SERG dressing intact, no new drainage noted. Pt continued to have increased abdominal pain/cramping, reporting pain 7/10. Hypoactive bowel sounds in all 4 quadrants, pt unable to tolerate even light palpation d/t pain. Pt noted to be grunting/moaning with expiration. Pt states I couldn't even walk any laps today the pain was so bad. I can't even stand up straight. PRN hydromorphone administered per MAR with little to no effect per patient. CC notified, made aware. STAT abdominal CT w/ contrast, CBC and procalcitonin ordered. VS at time of acute pain: Temp: 37.2C, HR 120, BP 111/66, SPO2 96% on room air. CT completed, awaiting results.
--- NOTE | 2024-06-01 23:08 | DI.VRAD_ITS ---
Addendum created by Kosta Salgado MD on 06/01/2024 11:10:37 PM EDT: THIS REPORT CONTAINS FINDINGS THAT MAY BE CRITICAL TO PATIENT CARE. The findings were verbally communicated via telephone conference with Ambar Joshi at 11:10 PM EDT on 06/01/2024. The findings were acknowledged and understood. Initial report created on 06/01/2024 11:08:35 PM EDT: PROCEDURE INFORMATION: Exam: CT Abdomen And Pelvis With Contrast Exam date and time: 06/01/2024 10:23 PM Age: 68 years old Clinical indication: Other: Increase abd pain TECHNIQUE: Imaging protocol: Computed tomography of the abdomen and pelvis with contrast. Contrast material: 350; Contrast volume: 100 ml; Contrast route: INTRAVENOUS (IV); COMPARISON: CT CHEST/ABD/PEL W 05/24/2024 12:35 PM FINDINGS: Lungs: There is heterogeneous attenuation of the pulmonary parenchyma, consistent with air trapping from underlying small airways disease. Mild atelectasis at the lung bases bilaterally. Pleural spaces: Thickening of the right pleura. Heart: The cardiac structures are normal. Coronary arteries: There is mild atherosclerotic calcification of the coronary arteries. Liver: There is a diffuse decrease in hepatic parenchymal density, consistent with mild fatty infiltration. There are no focal liver lesions present. Gallbladder and biliary ducts: There is mild intrahepatic biliary dilation. The gallbladder is normal. There is no cholelitiasis, wall thickening or pericholecystic fluid to suggest cholecystitis. Pancreas: There is mild pancreatic atrophy and fatty replacement. No evidence of pancreatic masses. Spleen: The spleen is normal. An accessory splenule is present. Adrenal glands: The adrenal glands are normal. Kidneys and ureters: The kidneys are normal. Stomach and bowel: The small bowel is dilated with air-fluid levels. Surgical clips within the left hemiabdomen consistent with prior laparotomy and resection of patient's mass, small and possibly a portion of the large bowel. There is dilation of the colon with change in caliber within the pelvis images 27 through 53. This may represent a transitional zone of narrowing. Consider focal partial obstruction. Consider postoperative ileus. The bowel does appear significantly less dilated compared to 05/24/2024. Appendix: No evidence of appendicitis. Intraperitoneal space: There is free air within the abdomen with a large amount of free air within the perihepatic space, within the left perisplenic region, the epigastrium and mid and lower peritoneum. Findings consistent with recent surgical intervention. Vasculature: The aorta demonstrates mild atherosclerotic calcification. The arterial peripheral vasculature demonstrates diffuse mild atherosclerotic calcification. The inferior vena cava is small in caliber consistent with hypovolemia. The portal, mesenteric and splenic veins are patent. Lymph nodes: No enlarged lymph nodes. Urinary bladder: Unremarkable as visualized. Reproductive: There has been a hysterectomy. No adnexal cysts or masses are identified. Bones/joints: The skeletal structures and soft tissues show no evidence of fracture or other acute processes. Soft tissues: There are surgical clips present consistent with recent midline laparoscopy. There is whole body soft tissue edema present, consistent with anasarca. IMPRESSION: 1. The small bowel is dilated with air-fluid levels. Surgical clips within the left hemiabdomen consistent with prior laparotomy and resection of patient's mass, small bowel and possibly a portion of the large bowel. 2. There is dilation of the colon with change in caliber within the pelvis images 27 through 53. This may represent a transitional zone of narrowing. Consider focal partial obstruction. Consider postoperative ileus. 3. The bowel does appear significantly less dilated compared to 05/24/2024. 4. There is heterogeneous attenuation of the pulmonary parenchyma, consistent with air trapping from underlying small airways disease. Dictated and Authenticated by: Kosta Salgado MD. Ordering:RADHA Villalta MD
[2024-06-01 23:09] LABS: Procalcitonin < 0.1 ng/mL
--- NOTE | 2024-06-01 23:17 | W.PM.PROGNOT ---
Date of Service Date of service: 06/01/24 Time of Service: 23:18 Assessment and Plan Assessment and plan (1) Ileus following gastrointestinal surgery: Status: Acute (2) Abnormal weight loss: (3) Chronic diarrhea: (4) Fatigue: (5) Colon tumor: Status: Acute Subjective Subjective Interval history since last seen: I was called to see the patient by nursing morisight. Throughout the late afternoon evening she has been having increasing abdominal pain. At this point she is having pain that is so severe it is worse than in the immediate postop. She has had no nausea and vomiting. She has had no fever or chills. She is passing gas. Latest vital signs were taken at 2217 see [facility]. Stat lab was done as well which is available in [facility]. On exam her abdomen is distended and firm she does have bowel sounds still. There is been no further drainage through the PCOS. She is quite tender. However she is very minimal subcutaneous tissue (BMI 16). She has been given Gas-X, Maalox and IV narcotics which has not helped with her pain at all. She still has not had a bowel movement today Stat labs and a CT scan were done. I did review the CT scan personally and with the the rads on-call. he had a open extended right hemicolectomyFor a obstructing tumor in the transverse colon. He did also have to remove some omentum likely the patient has been very good about be been up and walking and is very been very compliant. However I still think from doing her CT scan she does have a significant ileus. I do not see any signs of leak and I do not think she has true peritonitis. The pain and distention is more from very large gas filled loops of colon and small bowel. There is even fecalization of the small bowel. And I do not see any significant fluid collections outside bowel. She does have minimal free air still but she did have an open procedure so this is not unexpected. She did get a dose of Invanz. I did switch her meds to IV and hold her p.o. meds. And made her n.p.o. If she starts vomiting then we will place an NG tube. I am also going to start her on Entereg to see if we can promote bowel motility encouraged the patient to be up and walking around. Labs and x-ray in a.m. and close follow-up I did review her labs. Albumin is 2. She is of her she is anemic this is most likely from combination of surgery and chronic disease. Will check a ferritin and trend her hemoglobin. If her ileus seems to be longstanding in nature, then I would consider starting TPN in her as she was malnourished prior to coming into surgery. Her tumor has been present for some time and she has lost a significant amount of weight. But as it stands right now I do not think she requires exploratory laparotomy and we will see how her condition evolves over the next few hours .areli 30 mins spent in direct pt care and 60 in non face to face time Objective Last Vital Signs Temp 37.2 C 06/01/24 22:17 Pulse 120 H 06/01/24 22:17 Resp 15 06/01/24 22:17 BP 111/80 06/01/24 22:17 Pulse Ox 96 06/01/24 22:17 Laboratory Results - last 24 hr 06/01/24 06/01/24 05:28 22:05 WBC 14.15 H 19.23 H RBC 3.81 L 3.69 L Hgb 10.7 L 10.3 L Hct 32.4 L 31.3 L MCV 85 85 MCH 28.1 27.9 MCHC 33.0 32.9 RDW 15.1 H 14.9 H Plt Count 609 H 603 H MPV 7.8 L 7.7 L Immature Gran % 1.3 Neutrophils % 78.4 Lymphocytes % 12.4 Monocytes % 6.0 Eosinophils % 1.6 Basophils % 0.3 Nucleated RBC % 0.0 Absolute Neutrophils 11.09 H Absolute Lymphocytes 1.75 Absolute Monocytes 0.85 H Absolute Eosinophils 0.23 Absolute Basophils 0.04 Procalcitonin < 0.1 Time Spent with Patient Time Spent with Patient: >50 minutes Time was spent: preparing to see the patient(eg.review tests), obtaining and/or reviewing separately otained hiistory, ordering medications,tests, procedures, referring, communicating with other health resident care associate, indepentently interpreting results, counseling the patient, care coordination and other
[2024-06-01] MEDS: Ketorolac 15 MG/ML VIAL IVP (23:18)
[2024-06-01] MEDS: ERTAPENEM 1 GM in Normal Saline 50 ML IVPB (23:19)
[2024-06-01] MEDS: Lactated Ringers 1,000 ML 75 ML IV (23:20)
--- NOTE | 2024-06-02 00:14 | PGE_ITS ---
Date of Service Date of service: 06/02/24 Time of Service: 10:36 Assessment and Plan Assessment and plan (1) Atelectasis of both lungs: Status: Acute (2) Low serum albumin: Status: Acute (3) Underweight due to inadequate caloric intake: Status: Acute Assessment and plan: Protein supplements (4) Cancer cachexia: Status: Acute Assessment and plan: If ileus does not resume today then we need to place a central line and start TPN (5) POWERS (nonalcoholic steatohepatitis): Status: Acute (6) Coronary artery calcification seen on CAT scan: Status: Acute (7) Aortic atherosclerosis: Status: Acute (8) Atherosclerosis of arteries: Status: Acute (9) Anasarca: Status: Acute (10) Postoperative hypovolemia: Status: Acute (11) Fatty pancreas: Status: Acute (12) Acute on chronic blood loss anemia: Status: Acute (13) Protein-calorie malnutrition, moderate: Status: Acute Assessment and plan: Nutritional support (14) Ileus following gastrointestinal surgery: Status: Acute Assessment and plan: Resolved at this time Continue supportive care Continue walking Resume low fiber diet Postop day #4. Due to the events of last night when to keep her in the hospital for observation 1 more day. If things continue to progress in standard routine postop fashion, and then anticipate discharge in a.m. Patient should not require services Follow-up with PCP in our office next week. I did review x-rays and labs today personally. Subjective Subjective Interval history since last seen: Patient condition improved from last night. She has been able to move her bowels today. She is up walking around. She has minimal pain. Pt is doing better she is hungry and would like to eat.. no headaches. No CP or SOB. no productive cough. no dysuria. no leg pain or swelling. Exam Narrative Exam Narrative: PHYSICAL EXAM GENERAL APPEARANCE: Alert, healthy appearance, oriented, x 3,? in no acute distress HYDRATION: Well hydrated HEAD, EYES, EARS, NECK, THROAT: Head is normocephalic, pupils equal, round, reactive to light and accommodation, ocular movement intact, sclera clear and no jaundice. ?Dentition intact. No sore throat.? No jaw pain. No thrush LUNGS: normal respiration/normal chest excursion. ?Clear to auscultation bilaterally. ?No wheeze. ?HEART: Regular rate and rhythm. no murmurs EXTREMITY: No edema or cyanosis.? no leg pain, redness, swelling.? ABDOME significantly less distention. Minimal strikethrough on her PCOS which is in place. Good bowel sounds. Minimal/appropriate incisional pain Objective Last Vital Signs Temp 37.2 C 06/01/24 22:17 Pulse 120 H 06/01/24 22:17 Resp 15 06/01/24 22:17 BP 111/80 06/01/24 22:17 Pulse Ox 96 06/01/24 22:17 Laboratory Results - last 24 hr 06/01/24 06/01/24 05:28 22:05 WBC 14.15 H 19.23 H RBC 3.81 L 3.69 L Hgb 10.7 L 10.3 L Hct 32.4 L 31.3 L MCV 85 85 MCH 28.1 27.9 MCHC 33.0 32.9 RDW 15.1 H 14.9 H Plt Count 609 H 603 H MPV 7.8 L 7.7 L Immature Gran % 1.3 Neutrophils % 78.4 Lymphocytes % 12.4 Monocytes % 6.0 Eosinophils % 1.6 Basophils % 0.3 Nucleated RBC % 0.0 Absolute Neutrophils 11.09 H Absolute Lymphocytes 1.75 Absolute Monocytes 0.85 H Absolute Eosinophils 0.23 Absolute Basophils 0.04 Procalcitonin < 0.1 Time Spent with Patient Time Spent with Patient: 25-34 minutes Time was spent: preparing to see the patient(eg.review tests), obtaining and/or reviewing separately otained hiistory, ordering medications,tests, procedures, referring, communicating with other health direct care specialist, indepentently interpreting results, counseling the patient, care coordination and other
[2024-06-02] MEDS: ACETAMINOPHEN 1,000 MG/100 ML BTL 400 MG IVPB ×4 (00:42→23:39)
[2024-06-02] MEDS: diazePAM 10 MG/2 ML SYR 2.5 MG IVP ×2 (00:43→23:38)
[2024-06-02] MEDS: Normal Saline Flush 10 ML SYR IVP ×4 (00:43→21:42)
[2024-06-02] MEDS: Normal Saline 500 ML IV (00:44)
[2024-06-02 03:05] VITALS: BP 94/64; PULSE 75; RESP 15; TEMP 36.2; O2SAT 97
[2024-06-02] MEDS: Ketorolac 15 MG/ML VIAL IVP ×3 (05:20→23:37)
[2024-06-02 05:42] LABS: Abs Immature Grans 0.15 10^3/uL (0.0-0.06); Absolute Basophil Count 0.05 10^3/uL (0.0-0.2); Absolute Eosinophil Count 0.33 10^3/uL (0.0-0.7); Absolute Lymphocyte Count 1.57 10^3/uL (1.2-3.4); Basophils % 0.4 %; Eosinophils % 2.6 %; HCT 29.8 % (36.0-46.0); HGB 9.7 g/dL (11.2-15.7); Immature Grans % 1.2 %; Lymphocytes % 12.5 %; MCH 27.8 pg (27.0-33.0); MCHC 32.6 % (32.0-36.0); MCV 85 fL (80-95); MPV 8.1 fL (8.0-11.0); Monocytes % 8.7 %; Neutrophils % 74.6 %; Platelet Count 620 10^3/uL (130-400); RBC 3.49 10^6/uL (3.93-5.22); RDW 15.1 % (11.7-14.6); RDW-SD 46.9 fL; WBC 12.59 10^3/uL (4.4-10.8)
[2024-06-02 05:58] LABS: Absolute Neutrophil Count 9.39 10^3/uL (1.2-6.7)
[2024-06-02 06:12] LABS: ALT 12 U/L (14-59); AST 9 U/L (15-37); Albumin 1.4 g/dL (3.4-5.0); Alkaline Phosphatase 100 U/L (46-116); BUN 9 mg/dL (7-18); Bilirubin, Total 0.26 mg/dL (0.2-1.0); C-Reactive Protein 16.58 mg/dL (<or=0.5); CREATININE 0.5 mg/dL (0.55-1.02); Calcium 8.2 mg/dL (8.5-10.1); Chloride 102 mmol/L (98-107); Estimated GFR 103.38 (mL/min/1.73m2); Glucose 75 mg/dL (74-106); Magnesium 1.8 mg/dL (1.8-2.4); Potassium 3.2 mmol/L (3.5-5.1); Sodium 138 mmol/L (136-145); Total Protein 4.8 g/dL (6.4-8.2)
[2024-06-02 06:38] LABS: Ferritin 110 ng/mL (8-252)
[2024-06-02 07:44] VITALS: BP 91/63; PULSE 69; RESP 18; TEMP 36.7; O2SAT 96
--- NOTE | 2024-06-02 08:00 | DI.RAD_ITS ---
Exam(s) XR ABDOMEN FLAT UPRIGHT EXAM: XR ABDOMEN FLAT UPRIGHT CLINICAL HISTORY: ileus. TECHNIQUE: 2D digital imaging was performed. COMPARISON: CT CT CHEST/ABD/PEL W from 05/24/[address] ABDOMEN PELVIS W from 06/01/2024 FINDINGS: Two views-supine and upright: There are vertical skin clips from recent laparotomy. There is normal peritoneum, with free air seen under both hemidiaphragms on the upright view and this is presumably related to the recent open surgery. However, there are still air-filled dilated bowel loops throughout the abdomen and pelvis. Either due to persistent obstruction or postop I ileus. There is contrast seen in the nondistended urinary bladder related to recent CT injections. IMPRESSION: Pneumoperitoneum which is either related to recent laparotomy or possibly ongoing concerning patholog y. There are still dilated air-filled bowel loops in the abdomen and pelvis. The left side of the colon is decompressed (which was distal to the large mass seen on recent CT scan). DATA REPOSITORY: RADIATION DOSE DELIVERED:
--- NOTE | 2024-06-02 08:35 | DI.VRAD_ITS ---
Addendum created by Diogenes Gonzalez MD on 06/02/2024 8:39:00 AM EDT: Pneumoperitoneum redemonstrated presumed postsurgical Initial report created on 06/02/2024 8:34:54 AM EDT: PROCEDURE INFORMATION: Exam: XR Abdomen Exam date and time: 06/02/2024 8:20 AM Age: 68 years old Clinical indication: Condition or disease; Other: Illeus TECHNIQUE: Imaging protocol: Radiologic exam of the abdomen. Views: 2 Views. Upright and supine views. COMPARISON: CT ABDOMEN PELVIS W 06/01/2024 10:23 PM FINDINGS: [place] overlying the midline Gastrointestinal tract: Moderate to severe gaseous distension throughout the bowel with fluid levels on the right. Large stool noted in the left colon. Intraperitoneal space: Normal. No free air. Bones/joints: Unremarkable for age. Contrast in the bladder IMPRESSION: Moderate to severe distension of the bowel as described which may represent ileus versus distal obstruction as previously described Dictated and Authenticated by: Diogenes Gonzalez MD. Ordering:RADHA Villalta MD
[2024-06-02] MEDS: Milk of Magnesia 30 ML CUP PO (11:03)
[2024-06-02 11:26] VITALS: BP 93/70; PULSE 83; RESP 18; TEMP 36.6; O2SAT 97
[2024-06-02] MEDS: Potassium Chloride Liquid 20 MEQ PKT PO (11:54)
[2024-06-02] MEDS: Protein Nutritional Supplement 16 GM 1 OUNCE PACKET PO ×2 (13:37→21:41)
[2024-06-02] MEDS: Lactated Ringers 1,000 ML 75 ML IV (13:40)
[2024-06-02] MEDS: traMADol 50 MG TAB PO ×2 (13:44→21:41)
[2024-06-02 15:41] VITALS: BP 95/68; PULSE 80; RESP 18; TEMP 36.4; O2SAT 97
[2024-06-02] MEDS: HYDROmorphone 2 MG/ML SYR 0.5 MG IVP (16:22)
[2024-06-02] MEDS: Enoxaparin 40 MG/0.4 ML SYR SC (16:23)
[2024-06-02 21:41] VITALS: TEMP 36.4
[2024-06-02 23:18] VITALS: BP 107/71; PULSE 75; RESP 18; TEMP 36; O2SAT 96
[2024-06-03] MEDS: HYDROmorphone 2 MG/ML SYR 0.5 MG IVP ×2 (02:35→09:07)
[2024-06-03] MEDS: Lactated Ringers 1,000 ML 75 ML IV (03:00)
[2024-06-03] MEDS: traMADol 50 MG TAB PO (03:37)
[2024-06-03 06:12] LABS: Anion Gap 6.3 mmol/L (3-11); BUN 18 mg/dL (7-18); CO2 29.7 mmol/L (21.0-32.0); CREATININE 0.5 mg/dL (0.55-1.02); Calcium 8.3 mg/dL (8.5-10.1); Chloride 103 mmol/L (98-107); Estimated GFR 103.38 (mL/min/1.73m2); Glucose 85 mg/dL (74-106); Potassium 4.1 mmol/L (3.5-5.1); Sodium 139 mmol/L (136-145)
[2024-06-03 06:35] VITALS: TEMP 36
[2024-06-03] MEDS: ACETAMINOPHEN 1,000 MG/100 ML BTL 400 MG IVPB (06:35)
[2024-06-03] MEDS: Ketorolac 15 MG/ML VIAL IVP (06:35)
[2024-06-03 06:36] LABS: D-Dimer 2826 ng/mlFEU (<500)
--- NOTE | 2024-06-03 07:18 | DSE_ITS ---
Date of service: 06/03/24 Time of Service: 07:18 DS: Diagnosis Discharge Diagnosis (1) Atelectasis of both lungs: Status: Acute (2) Low serum albumin: Status: Acute (3) Underweight due to inadequate caloric intake: Status: Acute (4) Cancer cachexia: Status: Acute (5) POWERS (nonalcoholic steatohepatitis): Status: Acute (6) Coronary artery calcification seen on CAT scan: Status: Acute (7) Aortic atherosclerosis: Status: Acute (8) Atherosclerosis of arteries: Status: Acute (9) Anasarca: Status: Acute (10) Postoperative hypovolemia: Status: Acute (11) Fatty pancreas: Status: Acute (12) Acute on chronic blood loss anemia: Status: Acute (13) Protein-calorie malnutrition, moderate: Status: Acute (14) Ileus following gastrointestinal surgery: Status: Acute Discharge Plan Disposition Patient Disposition: Home Condition: Good Discharge Details Reason For Visit: Colon Cancer Admit Date/Time: 05/29/24 09:34 Admit Provider: Charbel Chen Attending Provider: Charbel Chen Primary Care Provider: [facility] Hospital Course: Bridget is 68 years old. She has been having some crampy abdominal pain, change in the character of her stools. She underwent a colonoscopy where a large mass was identified. Biopsies proved colon cancer. She underwent a CT scan of the chest abdomen and pelvis that demonstrated a large tumor in the transverse colon with a significant amount of distal small bowel and proximal colon distention consistent with at the very least partial obstruction. She underwent an open extended right hemicolectomy. Postoperative course was complicated by some ileus that resolved by postoperative day 4. By postoperative day 5, she was feeling great. She was tolerating regular diet with soft formed stools. Surgical dressing was removed on that day, and the incision looked excellent, with no signs of infection. She did undergo bilateral lower extremity duplex as part of workup for leukocytosis. That demonstrated a left-sided external iliac and femoral deep vein thrombosis. She was started on therapeutic anticoagulation with rivaroxaban which will be continued as an outpatient Home Meds and New Rx's Prescriptions: New tramadol 50 mg tablet 50 mg PO Q8H PRNQty: 9 0RF Rx Instructions: Take 1 tablet by mouth up to every 8 hours if needed for more intense pain. rivaroxaban 15 mg tablet 15 mg PO DAILY Qty: 42 0RF Rx Instructions: Take 1 tablet by mouth in the morning with food, and 1 tablet by mouth in the evening with food. Take this medication at the same time every day. You will take this prescription for 3 weeks, then it will be changed. Please notify the office after 2 weeks for adjustment in the dosing. Discharge Instructions Instructions: Colectomy, Partial and Total, (DC), Deep vein thrombosis - Discharge instructions Additional Instructions: Bridget, I am glad that you are making a nice recovery from your colon resection. As you probably recall, you had a large growth in your colon that was proven to be a cancer during the colonoscopy. During your operation on this day, I removed to the ascending, and part of the transverse colon, where the tumor was located. We reconnected the small intestine to the large intestine, and things seem to be healing up nicely. You can wash the incision with warm soapy water. You should do this at least once if not twice per day. Although it is fine to rinse off in the shower, I do not want you soaking the incision underwater in any tub baths, or going swimming in pools or lakes until I see you in the off ice. Please be careful with your lifting over the next few weeks, as your abdominal wall will be quite a bit weaker than normal. I would like you to keep your lifting less than 5 pounds. The next part of your treatment will be determined by the pathology report from the tumor. As soon as I have that information I will be in touch. If you need anything or have any questions in the meantime, please do not hesitate to call. 1. Alternate [id number] Tylenol and ibuprofen as needed for pain. Use the prescription for tramadol if needed for more severe pain. 2. It is okay to use heating pads and ice packs on the incision if needed to help with comfort. 3.Call the office (or go directly to the emergency room after hours) if you notice any of the following: Develop chills (warm to touch), or if you have a thermometer and your temperature is above 101 Difficulty breathing or difficultly swallowing Persistent vomiting Any bleeding ? exceeding one tablespoon 4. Call your physician if the site where your intravenous was started becomes red, swollen, painful, and warm to touch. Referrals: Charbel Chen MD [ [facility] STAFF PHYSICIAN] - (June 20 at 2 PM) Activity:: No heavy lifting Equipment/Supplies:: No Equipment Needed Diet:: As Tolerated DS: Summary Time Spent with Patient providing and/or coordinating discharge services: Less than 30 minutes Status at Discharge Functional status at discharge: independent ambulation Overall status at discharge: patient is progressing back to baseline Mental Status: mental status grossly normal Speech and Movement: speech and movement normal Mood: congruent mood Affect: normal affect Quality:SDOH Health Related Social Needs: No Data to Display Exam GI Other: Abdomen is soft and non-distended. Wound is clean and without any signs of infection Psych Mental Status: mental status grossly normal Speech and Movement: speech and movement normal Mood: congruent mood Affect: normal affect DS: Data Vitals/I&O Vitals and I&O: Vital Signs Temperature 96.8 F L 06/03/24 06:35 Temperature Source Temporal Artery Scan 06/02/24 23:18 Pulse 75 06/02/24 23:18 Pulse Rhythm Regular 06/02/24 21:45 Pulse 81 05/29/24 14:22 Respiratory Rate 18 06/02/24 23:18 Respiratory Effort Normal 06/02/24 21:45 Respiratory Depth Normal 06/02/24 21:45 Respiratory Pattern Normal 06/02/24 21:45 Blood Pressure 107/71 06/02/24 23:18 Blood Pressure Mean 110 05/29/24 14:20 Pulse Oximetry 96 06/02/24 23:18 Respiratory End-tidal CO2 33 05/29/24 14:30 Oxygen Delivery Method Room Air 06/02/24 23:18 Oxygen Flow Rate 0 06/02/24 23:18 Pain Level 1 06/03/24 06:35 Comment RN Notified 06/02/24 03:05 Intake & Output 06/02/24 06/02/24 06/03/24 11:59 23:59 11:59 Intake Total 1500 / 1788.75 188.75 / 1788.75 1100 / 1100 Output Total 500 / 600 100 / 600 Balance 1000 / 1188.75 88.75 / 1188.75 1100 / 1100 Intake: IV 1500 / 1788.75 188.75 / 1788.75 1100 / 1100 Output: Urine 500 / 600 100 / 600 Other: Urine Color Yellow Light Rashmi Urine Appearance Cloudy Clear Urine Odor Normal Comment pt voided and was mixed with stool unable to measure Unable to measure urine as pt had loose stool in BSC with small amount of urine. Stool Size Large Moderate Moderate Stool Characteristics Formed Brown Liquid Brown Brown Voiding Methods Toilet Bedside Commode Data Completed and Pending Labs on day of discharge: Labs from last 24 hours 06/03/24 05:26 D-Dimer 2826 H Sodium 139 Potassium 4.1 Chloride 103 Carbon Dioxide 29.7 Anion Gap 6.3 BUN 18 Creatinine 0.5 L Est GFR (CKD-EPI 2020) 103.38 Glucose 85 Calcium 8.3 L PFSH All Active Problems Protein-calorie malnutrition, moderate (Acute) Acute on chronic blood loss anemia (Acute) Fatty pancreas (Acute) Postoperative hypovolemia (Acute) Anasarca (Acute) Atherosclerosis of arteries (Acute) Aortic atherosclerosis (Acute) Coronary artery calcification seen on CAT scan (Acute) POWERS (nonalcoholic steatohepatitis) (Acute) Cancer cachexia (Acute) Underweight due to inadequate caloric intake (Acute) Low serum albumin (Acute) Atelectasis of both lungs (Acute) Ileus following gastrointestinal surgery (Acute) Colon tumor (Acute) Medical History Encounter for screening colonoscopy Chronic diarrhea Abnormal weight loss Fatigue Surgical History History of hemicolectomy (~05/2024) Hx of appendectomy Hx of hysterectomy History of colonoscopy (~04/2024) H/O hernia repair Social History Smoking/Tobacco Use Status: Former Tobacco Use Quit Date: 11/13/17 Smoking risk assessment performed?: Yes Alcohol Intake: former Substance use type: does not use Housing: house Do you feel safe at home: Yes Do you feel safe in your relationship?: Yes Time Spent with Patient Time Spent with Patient: <45 minutes Time was spent: preparing to see the patient(eg.review tests), ordering medications,tests, procedures, referring, communicating with other health campground caretaker, indepentently interpreting results, counseling the patient and care coordination
--- NOTE | 2024-06-03 07:30 | DI.US_ITS ---
Exam(s) US EXTREMITY VENOUS BI EXAM: US EXTREMITY VENOUS BI CLINICAL HISTORY: r/o clot, elevated D-dimer. TECHNIQUE: Bilateral lower extremity venous ultrasound performed using grayscale, color-flow, and sp ectral Doppler analysis. COMPARISON: No exams were available for comparison FINDINGS: The right common femoral, femoral and popliteal veins demonstrate normal compressibility, augmentatio n, and color Doppler. The posterior tibial and peroneal veins are patent. The saphenofemoral junctio n is unremarkable. There is no evidence of a Don's cyst. The soft tissues are unremarkable. There is hypoechoic thrombus seen in the visualized portions of the left external iliac vein extendin g into the common femoral vein. This measures 4.3 cm in length. There is thrombus seen in the dista l left femoral vein. The posterior tibial veins are patent. There is thrombus seen in the superfici al vein below the knee extending the entire length of the lower leg. This is consistent with superfi cial thrombophlebitis. There is no evidence of a Don's cyst. The soft tissues are unremarkable. IMPRESSION: 1. No evidence of a right lower extremity DVT. 2. There is a left lower extremity DVT extending from the visualized portions of the left external il iac vein into the common femoral vein. There is also component of thrombus seen in the distal left f emoral vein. 3. Left lower extremity superficial thrombophlebitis in the lower leg. 4. Findings were discussed with TIM Garcia on med/surg at 8:44 a.m. on 06/03/2024. DATA REPOSITORY:
[2024-06-03 07:31] VITALS: BP 107/74; PULSE 77; RESP 18; TEMP 36.4; O2SAT 98
[2024-06-03] MEDS: Protein Nutritional Supplement 16 GM 1 OUNCE PACKET PO (08:58)
[2024-06-03] MEDS: Normal Saline Flush 10 ML SYR IVP (09:08)
--- NOTE | 2024-06-03 09:36 | NUR.NOTE ---
Nursing Note:Patients IVF's dc'd, tolerating PO's. Pt via WC to US. DVT in left upper leg per Dr Chen. Pt refused tramadol, medicated with IVP after return from US. Great relief but still gassy and bloated. Pt reassured after receiving results of US.
[2024-06-03] MEDS: Rivaroxaban 15 MG TABLET PO (10:15)
--- NOTE | 2024-06-03 10:57 | CMDISCH_ITS ---
Date of service: 06/03/24 Time of Service: 10:57 LACE Index Scoring Tool Questions: Length of Stay (in days): 4 - 6 Was the patient admitted via the E.D.?: No E.D. Visits: 0 Answers: Total Score: 4 Risk of Readmission: Low Risk Care Management Discharge Plan Reason for Hospitalization: Colon Cancer Discharge Plan: Bridget is discharged home via private vehicle with family. Bridget will follow up with community providers and her discharge plan of care as i nstructed. No new services are ordered prior to this discharge. Patient/Family Education Needs: Review discharge instructions, limitations, medications and plan to follow up with community providers. Discuss ask me three. SDOH Health Related Social Needs: No Data to Display
--- NOTE | 2024-06-03 12:13 | PGE_ITS ---
Date of Service Date of service: 06/03/24 Time of Service: 12:13 Assessment and Plan Assessment and plan (1) Colon tumor: Status: Acute Assessment and plan: * She is doing much better after extended right hemicolectomy. Unfortunately there is an acute DVT despite prophylaxis. I have started rivaroxaban which we will continue as an outpatient. I will schedule a follow up surgical visit and discharge home. Subjective Subjective Interval history since last seen: Bridget has been feeling much better since her bowel movment yesterday. She had another soft but formed BM today. No nausea or vomiting. U?S today showed an acute left pelvic DVT Exam GI Other: Inision is clean and dry. Abdomen is no longer distended. There is no tympany Objective Last Vital Signs Temp 97.5 F L 06/03/24 07:31 Pulse 77 06/03/24 07:31 Resp 18 06/03/24 07:31 BP 107/74 06/03/24 07:31 Pulse Ox 98 06/03/24 07:31 Laboratory Results - last 24 hr 06/03/24 05:26 D-Dimer 2826 H Sodium 139 Potassium 4.1 Chloride 103 Carbon Dioxide 29.7 Anion Gap 6.3 BUN 18 Creatinine 0.5 L Est GFR (CKD-EPI 2020) 103.38 Glucose 85 Calcium 8.3 L Time Spent with Patient Time Spent with Patient: <25 minutes Time was spent: preparing to see the patient(eg.review tests), indepentently interpreting results and counseling the patient
== END 2024-06-03 12:57 | disposition home or self-care (01) | DRG 330 ==
LOC: PDS 09:35 → MS 05-30 00:57
PROVIDERS: Surgery; Admitting Provider Surgery; PCP Nurse Practitioner Family; Visit Provider Surgery
PROC: 0DTF0ZZ Resection of Right Large Intestine, Open Approach (ICD-10-PCS; CPT 44140; principal; 2024-05-29 10:45)
DX: C18.4 Malignant neoplasm of transverse colon (principal); D62 Acute posthemorrhagic anemia; E44.0 Moderate protein-calorie malnutrition; K91.89 Other postprocedural complications and disorders of digestive system; K56.7 Ileus, unspecified; J98.11 Atelectasis; E89.89 Other postprocedural endocrine and metabolic complications and disorders; Z68.1 Body mass index [BMI] 19.9 or less, adult; E88.A Wasting disease (syndrome) due to underlying condition; R53.83 Other fatigue; K75.81 Nonalcoholic steatohepatitis (NASH); I25.10 Atherosclerotic heart disease of native coronary artery without angina pectoris; I70.0 Atherosclerosis of aorta; R60.1 Generalized edema; E86.1 Hypovolemia; K86.89 Other specified diseases of pancreas; Z87.891 Personal history of nicotine dependence
CPT/HCPCS: 44140; 36415; 80048; 80053; 84145; 85027; 86850; 86900; 86901; 97161; J1650; 74019; 74177; 82728; 83735; 85025; 85379; 86140; 88307; 88309; 88361; 93970; C9290; J0131; J0665; J0690; J1100; J1170; J1335; J1885; J2001; J2405; J2704; J3010; J3360; J3475; J3490

== ENCOUNTER → 2024-06-20 13:43 | Outpatient (BNVA) | payer MEDICARE, SELFPAY | PROVIDERS: PCP Nurse Practitioner Family; Referring Provider Nurse Practitioner Family; Visit Provider Physical Therapy Assistant | DX: Z48.815 Encounter for surgical aftercare following surgery on the digestive system (principal) ==

== ENCOUNTER → 2024-12-12 13:05 | Outpatient (BNVA) | payer MEDICARE, SELFPAY | PROVIDERS: PCP Nurse Practitioner Family; Referring Provider Nurse Practitioner Family; Visit Provider Student in an Organized Health Care Education/Training Program | DX: Z12.11 Encounter for screening for malignant neoplasm of colon (principal) ==

== ENCOUNTER → 2024-12-17 13:07 | Outpatient (BNVA) | payer MEDICARE, SELFPAY | PROVIDERS: PCP Nurse Practitioner Family; Referring Provider Nurse Practitioner Family; Visit Provider Surgery | DX: Z12.11 Encounter for screening for malignant neoplasm of colon (principal) ==

== ENCOUNTER 2024-12-23 09:35 | Day surgery (SDC) | payer MEDICARE, SELFPAY ==
--- NOTE | 2024-12-22 19:46 | PDOC.DSDIS_ITS ---
Date of service: 12/23/24 Discharge Plan Disposition Patient Disposition: Home Condition: Good Discharge Details Reason For Visit: screening colonoscopy Attending Provider: Charbel Chen Primary Care Provider: Niurka Norman Home Meds and New Rx's Prescriptions: Discontinued bisacodyl [Dulcolax (bisacodyl)] 5 mg tablet,delayed release (DR/EC) 5 mg PO ONCE Qty: 4 0RF Rx Instructions: Take per colonoscopy instructions provided by ordering providers office polyethylene glycol 3350 17 gram/dose powder 17 g PO ONCE Qty: 238 0RF Rx Instructions: Take per colonoscopy instructions provided by ordering providers office Discharge Instructions Additional Instructions: Bridget, I hope you feel well after the colonoscopy today make a quick recovery. Everything went very smoothly. Your prep was excellent negative everything fine. The new connection between your small intestine your colon looks fantastic. I do not see anything out of the ordinary here. Does we know from your previous colonoscopies, you do have some diverticulosis. The only real rel evant findings to today's procedure were 2 polyps. Both of these were small in size, and I removed both of them without any issues. These we sent off for testing, and I should get those results in about a week or 2. So long as they do not turn up anything out of the ordinary, then we will plan for another colonoscopy in 1 year. I will let you know the results of the polyp report, but all in all, this is very good progress. 1. If tolerated, consume a soft, low fiber diet for 1-2 days. 2[address] Do not drive, drink alcohol, operate machinery, make critical decisions, or do activities that require coordination or balance for 24 hours. 3. Because air was put into your colon during the procedure, expelling air from your rectum (passing gas or farting) is normal. 4. You may not have a bowel movement for 1-3 days because of the colonoscopy prep. This is normal. 5. Go directly to the emergency room if you notice any of the following: Develop chills (warm to touch), or if you have a thermometer and your temperature is above 101 Difficulty breathing or difficultly swallowing Persistent vomiting Severe abdominal pain, other than gas cramps Severe chest pain Black, tarry stools Any bleeding ? exceeding one tablespoon 6. Call your physician if the site where your intravenous was started becomes red, swollen, painful, and warm to touch. 7. Your physician has reviewed your pre-procedure medications. Please continue to take those medications as previously ordered. You will be given specific information/education regarding any changes to your medications before leaving. Stand Alone Forms: Anesthesia Discharge InstMyron Bear (DSU) Activity:: Activity as Tolerated Diet:: As Tolerated Discharge Orders Discharge Orders: Discharge Order (Routine); Ordered 12/22/24 Ordered By: Charbel Chen DS: Diagnosis Discharge Diagnosis (1) Encounter for screening colonoscopy: Asessment and Plan: Follow-up on polypectomy results
--- NOTE | 2024-12-22 19:48 | W.COLOREPORT ---
Date of service: 12/23/24 Time of Service: 12:03 Colonoscopy Report Date of procedure: 12/23/24 Pre-op diagnosis general: screening colonoscopy Post-op diagnosis procedure note: other (Colon polyps) Procedure: colonoscopy with polypectomy Surgeon: Charbel Chen Anesthesia Type: General:No Airway Estimated blood loss (mL): 5 Pathology: other (0.25 cm rectal polyp, 0.25 cm polyp at 20 cm) Complications: None Disposition: same day Indications: Bridget is a 69 year old woman with a history of colon cancer. She is undergoing her next screening colonoscopy Prep: Miralax/Dulcolax Procedure Start Time: 11:35 Procedure End Time: 11:51 Retraction Time: 8 Findings: Sigmoid diverticulosis; 0.25 cm rectal polyp, 0.25 cm polyp at 20 cm Procedure Description: After the induction of anesthesia, and with Bridget in left lateral decubitus position, I began by performing an external anorectal exam.? Perineum and skin were normal, as was the anal verge.? There are some perianal skin tags consistent with old hemorrhoids.? Next, I performed a digital rectal exam.? I did not appreciate any abnormal findings.? Next, I advanced a colonoscope into the rectal vault.? I performed retroflexion.? This appeared normal.? There was a 0.25 cm flat polyp in the lower portion of the rectal vault. This was removed with cold forceps with minimal bleeding. Using insufflation, I then advanced the colonoscope beyond the rectal folds and into the sigmoid colon before advancing towards ileocolic anastomosis.? The quality of the prep was excellent.? The anastomosis was encountered and was widely patent and healthy appearing. I am able to navigate across it with ease into the terminal ileum. All of this looks normal. There is a small pouch of ileum adjacent to the anastomosis from the [id number] nature of it. This was a also examined. There were no abnormalities here. I then began withdrawing the colonoscope using repeated irrigation as necessary for full evaluation of the colonic mucosa. Around 20 cm from the anal verge was a 0.25 cm flat polyp. This was removed with cold forceps with minimal bleeding. ?Once the scope was withdrawn to the level of the rectum, great care was taken to examine portions of the rectal folds.? Finally, the scope was withdrawn and the patient was brought to the same-day surgery recovery unit as the anesthetic wore off. ?The findings and instructions were shared with the patient prior to discharge. [place] Bowel Prep [place] Bowel Prep Right Colon: 3 Left Colon: 3 Transverse Colon: 3 Total Score: 9
[2024-12-23 10:19] VITALS: BP 110/84; PULSE 72; RESP 20; TEMP 36.6; O2SAT 98
[2024-12-23] MEDS: Lactated Ringers 1,000 ML 80 ML IV (10:36)
[2024-12-23 11:24] VITALS: BMI 21.6
--- NOTE | 2024-12-23 11:24 | W.ANESPRE ---
General Info Date of Service Date Performed: 12/23/24 Height: 5 ft 6 in Weight: 60.7 kg Body Mass Index (BMI): 21.6 Surgical Procedure: Operation Date: 12/23/24 11:20 Proposed Procedure Side Surgeon p Colonoscopy Charbel Chen MD Actual Procedure Side Surgeon p Colonoscopy Not Applicable Charbel Chen MD Pre-Op Diagnosis Post-Op Diagnosis Screening colonoscopy - health maintenance History of colon cancer Meds Allergies and Home Medications Allergies Allergy/AdvReac Type Severity Reaction Status Date / Time No Known Allergies Allergy Verified 12/20/24 09:39 Current Visit Medications: Current Medications Generic Name Dose Route Start Last Admin Trade Name Freq PRN Reason Stop Dose Admin Ringer's Solution 1,000 mls @ 80 mls/hr 12/23/24 06:00 12/23/24 10:36 IV 12/23/24 23:59 80 mls/hr INFUSION BRANDON Administration IV Miscellaneous Supplies 1 each 12/23/24 06:00 Iv Access IV 12/23/24 23:59 DIRECTED BRANDON Ondansetron HCl 4 mg 12/22/24 19:50 Ondansetron 4 Mg/2 Ml Vial IVP 01/21/25 19:49 Q4H PRN PRN Nausea / Vomiting Sodium Chloride 0 ml 12/23/24 06:00 Normal Saline Flush 10 Ml Syr IV 12/23/24 23:59 PRN PRN Sodium Chloride 0 ml 12/23/24 06:00 Normal Saline 10 Ml Vial IJ 12/23/24 23:59 DIRECTED PRN Sterile Water 0 ml 12/23/24 06:00 Water,Injection,Sterile 10 Ml Vial IJ 12/23/24 23:59 DIRECTED PRN PFSH Active Problems Active Problems: Problem Status Onset Code Protein-calorie malnutrition, moderate Acute E44.0 Acute on chronic blood loss anemia Acute D62 Fatty pancreas Acute K86.89 Atherosclerosis of arteries Acute I70.90 Aortic atherosclerosis Acute I70.0 Coronary artery calcification seen on CAT scan Acute I25.10 POWERS (nonalcoholic steatohepatitis) Acute K75.81 Cancer cachexia Acute R64 Underweight due to inadequate caloric intake Acute R63.6 Low serum albumin Acute R77.0 Atelectasis of both lungs Acute J98.11 Medical History Medical History Encounter for screening colonoscopy Chronic diarrhea Abnormal weight loss Fatigue Surgical History Surgical History History of hemicolectomy (~05/2024) Hx of appendectomy Hx of hysterectomy History of colonoscopy (~04/2024) H/O hernia repair Tobacco Smoking/Tobacco Use Status: Former Tobacco Use Alcohol Alcohol Intake: current Alcohol intake frequency: holidays/special occasions only Substance Use Substance use: Never Substance use type: does not use Details: alcohol: 11/12/25 Vital Signs and Lab Results Vital Signs Most Recent Vital Signs in EMR: Most Recent Vital Signs Temp Pulse Resp BP Pulse Ox 36.6 C 72 20 110/84 98 12/23/24 10:19 12/23/24 10:19 12/23/24 10:19 12/23/24 10:19 12/23/24 10:19 Lab Results Blood Type / Crossmatch: No Data to Display Complete Blood Count: No Data to Display Complete Metabolic Panel: No Data to Display Liver Function Panel: No Data to Display Coagulation Panel: No Data to Display Cardiac Panel: No Data to Display Arterial Blood Gas: No Data to Display Venous Blood Gas: No Data to Display Pancreas Panel: No Data to Display Thyroid Panel: No Data to Display Infectious Disease: No Data to Display Blood Cultures: No Data to Display Toxicology Panel: No Data to Display Anesthesia Assessment and Plan Anesthesia History Personal History: No History of Anesthesia Complications Family History: No Family History of Anesthesia Complications Exercise Tolerance Exercise Tolerance: Metabolic Equivalents>4 Pertinent Negatives Pertinent Negatives: No Symptoms of GERD Cardiac & Pulmonary Exam Cardiac Exam: Normal S1/S2 Heart Sounds Pulmonary Exam: Clear Bilateral Breath Sounds Implantable Cardiac Device Does patient have a Pacemaker or an ICD?: No Airway Exam Known Difficult Airway: No Mallampati Class: 2 Mouth Opening: Normal (> 3cm) Thyromental Distance: Greater than 3 cm Neck Range of Motion: Full ROM Neck Circumference: Normal Teeth Condition: Removable Dentures/Plates Upper and Removable Dentures/Plates Lower (partial) ASA Classification ASA Score: ASA 2 Emergency Case?: No NPO Status NPO Status: NPO Clears >2 hours, Solids >8 hours Anesthesia Plan Resuscitation Status: Full Code Anesthesia Technique: General Anesthesia Airway Planned: Natural Airway Monitors Used: Standard Monitors
--- NOTE | 2024-12-23 11:37 | BOWEL_PTH ---
PATIENT: Bridget Graves LOC: [facility] U#:[id number] AGE/SX: 69/F ROOM: RE12/23/[address]: Charbel Chen MD : 1955 BED: DIS: 12/23/2024 SPEC #: [id number] RECD: 12/23/24 13:13 STATUS: CAROLYN REQ #: [id number] ROLANDO: 12/23/24 11:[address]: Charbel Chen DEPT: Surgical Specimen RECD BY: Susan Longo ENTERED: 12/23/24 13:14 SP TYPE: Bowel OTHR DR: Rylan Norman Tissues: 1 - BIOPSY BOWEL 2 - BIOPSY BOWEL Procedures: GROSS AND MICRO LEVEL 4 Comments: [id number]
[2024-12-23 11:56] VITALS: BP 117/71; PULSE 83; RESP 16; TEMP 36.2; O2SAT 96
--- NOTE | 2024-12-23 12:14 | W.ANESPOSTOP ---
Postoperative Evaluation Date, Time and Location Date Performed: 12/23/24 Time Performed: 12:01 Patient Location: Day Surgery Unit Vital Signs Most Recent Imported Vital Signs: Most Recent Vital Signs Temp Pulse Resp BP Pulse Ox 36.2 C L 83 16 117/71 96 12/23/24 11:56 12/23/24 11:56 12/23/24 11:56 12/23/24 11:56 12/23/24 11:56 Pain Score Most Recent Pain Score: Most Recent Pain Score Pain Level 0 12/23/24 11:56 Assessment Mental Status: Awake (Alert & Oriented to Patient Baseline) Airway and Respiratory Function: Patent airway with normal (patient baseline) respiratory exam Cardiovascular Function: Hemodynamically Stable Hydration Status: Adequately Hydrated Nausea & Vomiting: No Nausea or Vomiting Pain: Pt. Denies Any Pain Peripheral Nerve Block: Patient did not receive a nerve block
[2024-12-23 12:22] VITALS: BP 134/96; PULSE 57; RESP 20; TEMP 36.5; O2SAT 100
== END 2024-12-23 12:48 | disposition home or self-care (01) ==
LOC: SUR 09:36
PROVIDERS: PCP Nurse Practitioner Family; Visit Provider Surgery
PROC: 0DJD8ZZ Inspection of Lower Intestinal Tract, Via Natural or Artificial Opening Endoscopic (ICD-10-PCS; CPT 45378; principal; 2024-12-23 11:15)
DX: Z12.11 Encounter for screening for malignant neoplasm of colon (principal); Z85.038 Personal history of other malignant neoplasm of large intestine; K63.5 Polyp of colon; K62.1 Rectal polyp
CPT/HCPCS: 45380; 88305; J2003; J2704